=== PATIENT | female | born 1975 | race Caucasian/White ===

== ENCOUNTER 2016-05-18 09:46 | Emergency (ER) | payer MEDICAID | END 2016-05-18 10:31 | disposition home or self-care (01) | DX: M79.644 Pain in right finger(s) (principal); M32.9 Systemic lupus erythematosus, unspecified; M79.7 Fibromyalgia; F17.200 Nicotine dependence, unspecified, uncomplicated ==

== ENCOUNTER 2016-07-10 00:16 | Emergency (ER) | payer MEDICAID ==
[2016-07-10] MEDS ORDERED: IPRATROPIUM/ALBUTEROL 3 ML NEB INH ONE (00:23)
[2016-07-10] MEDS ORDERED: ALBUTEROL NEB 2.5 MG/3 ML INH ONE (00:26)
[2016-07-10] MEDS ORDERED: ALBUTEROL NEB 2.5 MG/3 ML INH STA (00:36)
[2016-07-10] MEDS ORDERED: predniSONE 20 MG TABLET PO STA (00:36)
[2016-07-10] MEDS ORDERED: predniSONE 20 MG TABLET ONE (00:41)
[2016-07-10] MEDS ORDERED: ALBUTEROL 8 GM INHALER INH ONE (01:14)
[2016-07-10] MEDS ORDERED: ALBUTEROL 8 GM INHALER INH STA (01:18)
== END 2016-07-10 01:30 | disposition home or self-care (01) ==
DX: J45.909 Unspecified asthma, uncomplicated (principal); Z86.718 Personal history of other venous thrombosis and embolism; M32.9 Systemic lupus erythematosus, unspecified; M79.7 Fibromyalgia; F17.200 Nicotine dependence, unspecified, uncomplicated
CPT/HCPCS: 94640; 99283; A9270; J7512; J7613; J7620

== ENCOUNTER 2016-08-04 22:54 | Emergency (ER) | payer MEDICAID ==
[2016-08-04 23:06] VITALS: BP 125/87
--- NOTE | 2016-08-04 23:42 | ED Physician Documentation ---
PD HPI URI - Stated complaint Stated Complaint: COUGH/CONGESTION - Chief complaint Chief Complaint: Heent - History obtained from History obtained from: Patient, Family - History of Present Illness Timing - onset: How many weeks ago (3) Timing duration: Weeks (3) Timing details: Gradual onset, Still present, Waxing and waning Associated symptoms: Ear pain (for 3 days on the left), Nasal congestion, Rhinorrhea, Sinus pain, Sore throat, Dry cough Contributing factors: Sick contact (both daughters are sick with similar) Improves by: Rest, Medication Worsened by: Activity Similar symptoms before: Diagnosis (URI asthma) Recently seen: Emergency Dept (Seen in the Ed with viral URI and was placed on a course of prednisone for 5 days with some improvment.) - Additional information Additional information: 40 y/o female with cough and congestion has a history of asthma and has recently had an exacerbation. She has left ear pain and worsening of her cough now and she has had to use her inhaler about 3 times per day. Review of Systems Constitutional: reports: Fever, Fatigue Eyes: denies: Decreased vision Ears: reports: Ear pain Nose: reports: Rhinorrhea / runny nose, Congestion Throat: reports: Sore throat Cardiac: denies: Chest pain / pressure, Palpitations Respiratory: reports: Dyspnea, Cough, Wheezing GI: denies: Nausea, Vomiting : denies: Dysuria Musculoskeletal: denies: Neck pain, Back pain PD PAST MEDICAL HISTORY - Past Medical History Cardiovascular: Deep vein thrombosis Respiratory: Asthma Endocrine/Autoimmune: Systemic lupus erythematosus Psych: Depression Musculoskeletal: Fibromyalgia Derm: None - Past Surgical History Past Surgical History: Yes - Present Medications Home Medications: Ambulatory Orders Medication Instructions Recorded Confirmed Albuterol Sulfate [Proair Hfa 1 - 2 puffs INH Q4H PRN #1 inhaler 07/10/16 Inhaler] Azithromycin [Zithromax] 250 mg PO DAILY #4 tablet 08/04/16 - Allergies Allergies/Adverse Reactions: Allergies Allergy/AdvReac Type Severity Reaction Status Date / Time cherries Allergy Severe Edema Uncoded 08/04/16 23:06 nuts Allergy Severe Edema Uncoded 08/04/16 23:06 - Social History Does the pt smoke?: Yes Smoking Status: Current every day smoker Does the pt drink ETOH?: No Does the pt have substance abuse?: No - Immunizations Immunizations are current?: Yes - POLST Patient has POLST: No PD ED PE NORMAL - Vitals Vital signs reviewed: Yes (tachy and hypertensive ) - General General: No acute distress, Well developed/nourished - HEENT HEENT: Atraumatic, PERRL, EOMI, Other (The right TM is clear the left is with dense erythema and distortion of the landmarks. There is left maxillary sinus tenderness as well. ) - Neck Neck: Supple, no meningeal sign, No bony TTP - Cardiac Cardiac: No murmur, Other (tachy to 100) - Respiratory Respiratory: No respiratory distress, Other (fair air movement without focal rhonchi and with scattered wheezes) - Extremities Extremities: No deformity, No edema - Neuro Neuro: No motor deficit, No sensory deficit - Psych Psych: Normal mood, Normal affect Results - Vitals Vitals: Vital Signs - 24 hr 08/04/16 23:02 Temperature 36.0 C L Heart Rate 107 H Respiratory 16 Rate Blood Pressure 125/87 H O2 Saturation 95 Oxygen O2 Source Room air PD MEDICAL DECISION MAKING - ED course Complexity details: reviewed old records, re-evaluated patient, considered differential, d/w patient, d/w family ED course: 40 y/o female sick for the past 6 weeks with asthma has now developed ear pain and a cough that has not gone away. She is given a dose of decadron here in the Ed and we will put her on zithromax as this has worked for this previously. I did discuss with the patient that the decadron will help for about 2 days and I am reluctant to put her on an extended course of prednisone now as this may be adequate. Departure - Departure Disposition: 01 Home, Self Care Clinical Impression: Otitis media Qualifiers: Otitis media type: suppurative Laterality: left Chronicity: acute Recurrence: not specified as recurrent Spontaneous tympanic membrane rupture: without spontaneous rupture Qualified Code(s): H66.002 - Acute suppurative otitis media without spontaneous rupture of ear drum, left ear Condition: Stable Instructions: ED Otitis Media Acute Adult Follow-Up: Naomie Galarza ARNP [Credentialed Staff Provider] - Prescriptions: Azithromycin [Zithromax] 250 mg PO DAILY #4 tablet
[2016-08-04] MEDS ORDERED: AZITHROMYCIN 250 MG TABLET PO STA (23:49)
[2016-08-04] MEDS ORDERED: DEXAMETHASONE 10 MG/ML VIAL PO STA (23:49)
[2016-08-05] MEDS ORDERED: DEXAMETHASONE 10 MG/ML VIAL ONE (00:04)
[2016-08-05] MEDS ORDERED: AZITHROMYCIN 250 MG TABLET PO ONE (00:04)
[2016-08-05] MEDS ORDERED: CHERRY SYRUP 10 ML UDC PO ONE (00:04)
== END 2016-08-05 00:13 | disposition home or self-care (01) ==
LOC: ED 22:54
DX: H66.002 Acute suppurative otitis media without spontaneous rupture of ear drum, left ear (principal); J45.909 Unspecified asthma, uncomplicated; M32.9 Systemic lupus erythematosus, unspecified; M79.7 Fibromyalgia; Z86.718 Personal history of other venous thrombosis and embolism; F17.200 Nicotine dependence, unspecified, uncomplicated
CPT/HCPCS: 99283; 99284; A9270

== ENCOUNTER 2017-01-02 17:25 | Emergency (ER) | payer MEDICAID ==
[2017-01-02] MEDS ORDERED: MORPHINE 10 MG/ML VIAL IVP STA (17:39)
[2017-01-02] MEDS ORDERED: ALBUTEROL NEB 2.5 MG/3 ML INH STA (17:39)
[2017-01-02] MEDS ORDERED: SODIUM CHLORIDE 0.9% 1,000 ML IV ONE (17:39)
--- NOTE | 2017-01-02 17:43 | ED Physician Documentation ---
PD HPI CHEST PAIN - Stated complaint Stated Complaint: SOA - Chief complaint Chief Complaint: Resp - History obtained from History obtained from: Patient, Family - History of Present Illness Timing - onset: Other (41-year-old without significant past medical history presents with 1-1/2 weeks of sometimes productive cough and central nonradiating chest tightness that is constant and worse today, worse with coughing and deep breathing. She is short of breath and sweaty with subjective fevers and chills. She has a history of childhood asthma, but she outgrew it. No other heart or lung abnormalities. She does have chronic pedal edema which is unchanged from prior, no leg pain. No recent travel or sick contacts. No possibility of per her.) Review of Systems Constitutional: reports: Fever, Chills, Fatigue Ears: denies: Ear pain Nose: denies: Rhinorrhea / runny nose, Congestion Cardiac: reports: Chest pain / pressure, Pedal edema. denies: Palpitations, Calf pain Respiratory: reports: Dyspnea, Cough. denies: Hemoptysis GI: denies: Abdominal Pain PD PAST MEDICAL HISTORY - Past Medical History Cardiovascular: Deep vein thrombosis Respiratory: Asthma Endocrine/Autoimmune: Systemic lupus erythematosus Psych: Depression Musculoskeletal: Fibromyalgia Derm: None - Past Surgical History Past Surgical History: Yes - Present Medications Home Medications: Ambulatory Orders Medication Instructions Recorded Confirmed Albuterol Sulfate [Proair Hfa 1 - 2 puffs INH Q4H PRN #1 inhaler 07/10/16 Inhaler] Azithromycin [Zithromax] 250 mg PO DAILY #4 tablet 08/04/16 Azithromycin [Zithromax] 250 mg PO DAILY #4 tablet 01/02/17 HYDROcod/ACETAM 5/325 [[place] 5/325] 1 - 2 ea PO Q6H PRN #15 tablet 01/02/17 guaiFENesin/CODEINE [Robitussin AC] 5 - 10 ml PO Q6H PRN #120 ml 01/02/17 - Allergies Allergies/Adverse Reactions: Allergies Allergy/AdvReac Type Severity Reaction Status Date / Time cherries Allergy Severe Edema Uncoded 08/04/16 23:06 nuts Allergy Severe Edema Uncoded 08/04/16 23:06 - Social History Does the pt smoke?: Yes Smoking Status: Current every day smoker Does the pt drink ETOH?: No Does the pt have substance abuse?: No - Immunizations Immunizations are current?: Yes - POLST Patient has POLST: No PD ED PE NORMAL - Vitals Vital signs reviewed: Yes - General General: Alert and oriented X 3, Other (She is a very frequent bronchitic cough , she is tachycardic and speaking in short sentences.) - HEENT HEENT: PERRL, EOMI - Neck Neck: Supple, no meningeal sign, No bony TTP - Cardiac Cardiac: Other (Tachycardic, regular, no murmur) - Respiratory Respiratory: Other (Frequent coughing, wheezing throughout with rhonchi especially in the right upper lobe) - Abdomen Abdomen: Soft, Non tender - Back Back: No CVA TTP, No spinal TTP - Derm Derm: Normal color, Warm and dry - Extremities Extremities: Other (Trace symmetric pitting pedal edema without calf tenderness) - Neuro Neuro: Alert and oriented X 3, Normal speech - Psych Psych: Normal mood, Normal affect Results - Vitals Vitals: Vital Signs - 24 hr 01/02/17 01/02/17 01/02/17 17:29 17:50 18:19 Temperature 36.1 C L Heart Rate 124 H 140 H 114 H Respiratory 16 22 24 Rate Blood Pressure 149/98 H 124/75 O2 Saturation 93 92 Oxygen O2 Source Room air - EKG (time done) 1734 Rate: Rate (enter#) (122) Rhythm: Sinus tachycardia [place]: Normal QRS: Normal Ischemia: Non specific changes (Hard to make of the details because of artifacts due to coughing, but no gross ST changes.) Computer interpretation: Agree with computer - Labs Labs: Laboratory Tests 01/02/17 01/02/17 01/02/17 18:05 18:05 18:05 WBC 13.1 H RBC 4.75 Hgb 14.6 Hct 42.9 MCV 90.2 MCH 30.8 MCHC 34.2 RDW 13.7 Plt Count 382 MPV 7.6 L Neut # 7.2 H Lymph # 3.9 H [place] # 0.7 Eos # 1.0 H Baso # 0.2 H Absolute Nucleated RBC 0.01 Nucleated RBC % 0.0 Sodium 138 Potassium 3.7 Chloride 102 Carbon Dioxide 21 Anion Gap 15.0 H BUN 8 Creatinine 0.7 Estimated GFR (MDRD) 93 Glucose 106 H Calcium 9.3 Total Bilirubin 0.6 AST 39 ALT 59 Alkaline Phosphatase 66 Troponin I < 0.04 Total Protein 7.9 Albumin 4.5 Globulin 3.4 Albumin/Globulin Ratio 1.3 Lipase 29 Serum HCG, Qual 01/02/17 18:05 WBC RBC Hgb Hct MCV MCH MCHC RDW Plt Count MPV Neut # Lymph # [place] # Eos # Baso # Absolute Nucleated RBC Nucleated RBC % Sodium Potassium Chloride Carbon Dioxide Anion Gap BUN Creatinine Estimated GFR (MDRD) Glucose Calcium Total Bilirubin AST ALT Alkaline Phosphatase Troponin I Total Protein Albumin Globulin Albumin/Globulin Ratio Lipase Serum HCG, Qual NEGATIVE - Rads (name of study) 2v chest Radiology: EMP read contemporaneously (NAD) PD MEDICAL DECISION MAKING - ED course ED course: 41-year-old woman presents quite ill-appearing with significant cough and chest pain related to same, there is no evidence of cardiac ischemia. Her chest x- ray surprisingly clear. After the administration of IV fluids, albuterol, and 5 mg of morphine she was feeling much more comfortable and looking much better. Given the leukocytosis I will treat with antibiotics despite the negative chest x-ray. PE was considered, but given the frequent cough and wheezing this is inconsistent with the history and physical. Departure - Departure Disposition: 01 Home, Self Care Clinical Impression: Bronchitis Chest pain Qualifiers: Chest pain type: unspecified Qualified Code(s): R07.9 - Chest pain, unspecified Condition: Good Record reviewed to determine appropriate education?: Yes Instructions: ED Bronchitis Asthmatic Prescriptions: Azithromycin [Zithromax] 250 mg PO DAILY #4 tablet guaiFENesin/CODEINE [Robitussin AC] 5 - 10 ml PO Q6H PRN #120 ml PRN Reason: Cough HYDROcod/ACETAM 5/325 [[place] 5/325] 1 - 2 ea PO Q6H PRN #15 tablet PRN Reason: Pain Comments: Call your doctor to arrange a follow-up appointment, make the next available appointment. In the interim, return anytime if worse or if new symptoms develop.
[2017-01-02] MEDS ORDERED: ALBUTEROL NEB 2.5 MG/3 ML INH ONE (17:49)
[2017-01-02] MEDS ORDERED: MORPHINE 10 MG/ML VIAL ONE (18:06)
[2017-01-02 18:12] LABS: BASOPHILS # (AUTO) 0.2 10^3/uL (0.0-0.1); BASOPHILS % (AUTO) 1.5 %; EOSINOPHILS % (AUTO) 7.9 %; HCT - HEMATOCRIT 42.9 % (37.0-47.0); HGB - HEMOGLOBIN 14.6 g/dL (12.0-16.0); LYMPHOCYTES # (AUTO) 3.9 10^3/uL (1.5-3.5); LYMPHOCYTES % (AUTO) 29.9 %; MEAN CORPUSCULAR HEMOGLOBIN 30.8 pg (27.0-31.0); MEAN CORPUSCULAR HGB CONC 34.2 g/dL (32.0-36.0); MEAN CORPUSCULAR VOLUME 90.2 fL (81.0-99.0); MEAN PLATELET VOLUME 7.6 fL (7.9-10.8); MONOCYTES # (AUTO) 0.7 10^3/uL (0.0-1.0); MONOCYTES % (AUTO) 5.3 %; NEUTROPHILS # (AUTO) 7.2 10^3/uL (1.5-6.6); NEUTROPHILS % (AUTO) 55.4 %; RED BLOOD COUNT 4.75 10^6/uL (4.20-5.40); RED CELL DISTRIBUTION WIDTH 13.7 % (12.0-15.0); UNCORRECTED WHITE BLOOD COUNT 13.1 x10^3/uL; WHITE BLOOD COUNT 13.1 x10^3/uL (4.8-10.8)
[2017-01-02 18:20] VITALS: BP 124/75
[2017-01-02 18:26] LABS: ALBUMIN/GLOBULIN RATIO 1.3 (1.0-2.2); BILIRUBIN,TOTAL 0.6 mg/dL (0.2-1.0); CALCIUM 9.3 mg/dL (8.5-10.3); CREATININE 0.7 mg/dL (0.4-1.0); POTASSIUM 3.7 mmol/L (3.5-5.0); TOTAL PROTEIN 7.9 g/dL (6.7-8.2)
--- NOTE | 2017-01-02 18:39 | XRAY Preliminary Report ---
Exam: XR CHEST 2 VIEW PA/LAT IMPRESSION: Normal 2-view chest radiography. [facility] SITE ID: [id number]
--- NOTE | 2017-01-02 18:42 | XRAY Report ---
EXAM: CHEST RADIOGRAPHY EXAM DATE: 01/02/2017 06:26 PM. CLINICAL HISTORY: Cough, chest pain. COMPARISON: 02/14/2014. TECHNIQUE: 2 views. FINDINGS: Lungs/Pleura: No focal opacities evident. No pleural effusion. No pneumothorax. Normal volumes. Mediastinum: Heart and mediastinal contours are unremarkable. Other: None. IMPRESSION: Normal 2-view chest radiography. [facility] Referring Provider Line: [phone] SITE ID: [id number]
[2017-01-02] MEDS ORDERED: predniSONE 20 MG TABLET PO STA (19:06)
[2017-01-02] MEDS ORDERED: AZITHROMYCIN 250 MG TABLET PO STA (19:06)
[2017-01-02] MEDS ORDERED: AZITHROMYCIN 250 MG TABLET PO ONE (19:18)
[2017-01-02] MEDS ORDERED: predniSONE 20 MG TABLET ONE (19:19)
== END 2017-01-02 19:20 | disposition home or self-care (01) ==
LOC: ED 17:25
DX: J40 Bronchitis, not specified as acute or chronic (principal); R07.9 Chest pain, unspecified; R00.0 Tachycardia, unspecified; D72.829 Elevated white blood cell count, unspecified; M32.9 Systemic lupus erythematosus, unspecified; Z86.718 Personal history of other venous thrombosis and embolism
CPT/HCPCS: 36415; 71020; 80053; 83690; 84484; 84703; 85025; 93005; 94640; 94664; 96361; 96374; 99283; 99284; A9270; J7512; J7613

== ENCOUNTER 2017-01-08 13:34 | Outpatient (CLI) | payer MEDICAID ==
--- NOTE | 2017-01-08 16:20 | Mammography Report ---
DIGITAL DIAGNOSTIC BILATERAL MAMMOGRAM: 01/08/2017 CLINICAL INDICATION: Left nipple discharge, palpable abnormality right breast on clinical exam. COMPARISON: 06/29/2009, 07/03/2009. TECHNIQUE: Bilateral CC, MLO, true lateral views, left spot magnification views. A marker could not b e placed in the right breast, as the patient was unable to identify a palpable abnormality at the rm e of the examination. FINDINGS: The breasts demonstrate fatty replacement bilaterally. A marker from previous ultrasound-g uided core needle biopsy of the right breast is noted in the right lower inner central breast. The pr eviously biopsied fibroadenoma is no longer present, likely surgically resected. No mammographic abno rmality is appreciated in the 9 o'clock position of the right breast, at the site of described palpab le abnormality. No mammographic abnormality is seen in the retroareolar left breast. No suspicious ma sses, clustered microcalcifications, or regions of architectural distortion are identified. IMPRESSION: BENIGN FINDINGS. RECOMMENDATION: ROUTINE ANNUAL SCREENING UNLESS OTHERWISE CLINICALLY INDICATED. BIRADS CATEGORY 2-BENIGN FINDINGS. STANDARD QUALIFYING STATEMENTS 1. This examination was reviewed with the aid of Computer-Aided Detection (CAD). 2. A negative or benign imaging report should not delay biopsy if clinically suspicious findings are present. Consider surgical consultation if warranted. More than 5% of cancers are not identified by i maging. 3. Dense breasts may obscure an underlying neoplasm. JOB #: [id number] EXT JOB #:[id number]
== END 2017-01-08 13:35 | disposition home or self-care (01) ==
LOC: DI 13:34
PROVIDERS: ATTEND Nurse Practitioner Gerontology
DX: N63.10 Unspecified lump in the right breast, unspecified quadrant (principal)
CPT/HCPCS: 77066

== ENCOUNTER 2017-05-29 20:56 | Emergency (ER) | payer MEDICAID ==
[2017-05-29] MEDS ORDERED: METOCLOPRAMIDE 10 MG/2 ML VIAL IVP STA (22:06)
[2017-05-29] MEDS ORDERED: KETOROLAC 30 MG/ML VIAL IVP STA (22:06)
[2017-05-29] MEDS ORDERED: SODIUM CHLORIDE 0.9% 1,000 ML IV ONE (22:06)
[2017-05-29] MEDS ORDERED: diphenhydrAMINE INJ 50 MG/ML VIAL IVP STA (22:06)
[2017-05-29] MEDS ORDERED: DEXAMETHASONE 10 MG/ML VIAL IVP STA (22:06)
--- NOTE | 2017-05-29 22:08 | ED Physician Documentation ---
PD HPI HEADACHE - Stated complaint Stated Complaint: KENT/COUGH - Chief complaint Chief Complaint: Resp - History obtained from History obtained from: Patient - History of Present Illness Timing - onset: Other (41-year-old woman with history of asthma and migraines. She has had a frontal headache for 3 days, gradual in onset associated with photophobia but no nausea. She has been taking naproxen and ibuprofen and Tylenol without relief. She also has sinus drainage and nonproductive cough but without fevers. There is no neck stiffness.) Review of Systems Constitutional: denies: Fever, Chills Ears: reports: Ear pain. denies: Loss of hearing Nose: reports: Rhinorrhea / runny nose, Congestion. denies: Sinus pressure / pain Throat: denies: Sore throat Respiratory: reports: Cough. denies: Dyspnea GI: denies: Abdominal Pain, Nausea, Vomiting PD PAST MEDICAL HISTORY - Past Medical History Cardiovascular: Deep vein thrombosis Respiratory: Asthma Endocrine/Autoimmune: Systemic lupus erythematosus Psych: Depression Musculoskeletal: Fibromyalgia Derm: None - Past Surgical History Past Surgical History: Yes - Present Medications Home Medications: Ambulatory Orders Medication Instructions Recorded Confirmed Albuterol Sulfate [Proair Hfa 1 - 2 puffs INH Q4H PRN #1 inhaler 07/10/16 Inhaler] Azithromycin [Zithromax] 250 mg PO DAILY #4 tablet 08/04/16 Azithromycin [Zithromax] 250 mg PO DAILY #4 tablet 01/02/17 HYDROcod/ACETAM 5/325 [[place] 5/325] 1 - 2 ea PO Q6H PRN #15 tablet 01/02/17 guaiFENesin/CODEINE [Robitussin AC] 5 - 10 ml PO Q6H PRN #120 ml 01/02/17 - Allergies Allergies/Adverse Reactions: Allergies Allergy/AdvReac Type Severity Reaction Status Date / Time cherries Allergy Severe Edema Uncoded 08/04/16 23:06 nuts Allergy Severe Edema Uncoded 08/04/16 23:06 - Social History Does the pt smoke?: Yes Smoking Status: Current every day smoker Does the pt drink ETOH?: No Does the pt have substance abuse?: No - Immunizations Immunizations are current?: Yes - POLST Patient has POLST: No PD ED PE NORMAL - Vitals Vital signs reviewed: Yes - General General: Alert and oriented X 3, No acute distress - HEENT HEENT: PERRL, EOMI, Pharynx benign, Other (Photophobic) - Neck Neck: Supple, no meningeal sign, No bony TTP - Cardiac Cardiac: RRR, No murmur - Respiratory Respiratory: No respiratory distress, Clear bilaterally - Abdomen Abdomen: Non tender - Neuro Neuro: Alert and oriented X 3, 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 Does not really seem like it is in a pattern consistent with vascular or meningitis type issue. She was administered IV fluids, Reglan, Toradol, Decadron, Benadryl with good but incomplete relief of her pain. Requesting discharge. Departure - Departure Disposition: Home, Self Care Clinical Impression: Upper respiratory tract infection Qualifiers: URI type: unspecified viral URI Qualified Code(s): J06.9 - Acute upper respiratory infection, unspecified Migraine Qualifiers: Migraine type: without aura Status migrainosus presence: with status migrainosus Intractability: not intractable Qualified Code(s): G43.001 - Migraine without aura, not intractable, with status migrainosus Condition: Good Record reviewed to determine appropriate education?: Yes Instructions: ED Viral Syndrome, ED Cephalgia Unspecified Comments: Call your doctor to arrange a follow-up appointment, make the next available appointment. In the interim, return anytime if worse or if new symptoms develop. Your blood pressure was elevated today on check into the emergency department. This does not mean that you have hypertension, it is a common phenomenon to come to the emergency department and have elevated blood pressure. I recommend that you see your primary care physician within the week to have it rechecked when you are feeling better.
[2017-05-29] MEDS ORDERED: HYDROcod/ACET 5/325 Prepack 6 PO STA (22:53)
[2017-05-29 23:02] VITALS: BP 114/61
== END 2017-05-29 23:05 | disposition home or self-care (01) ==
LOC: ED 20:56
DX: J06.9 Acute upper respiratory infection, unspecified (principal); R03.0 Elevated blood-pressure reading, without diagnosis of hypertension; M32.9 Systemic lupus erythematosus, unspecified; F17.200 Nicotine dependence, unspecified, uncomplicated; Z86.718 Personal history of other venous thrombosis and embolism
CPT/HCPCS: 96374; 96375; 99283; J1200; J2765

== ENCOUNTER 2017-08-27 00:07 | Emergency (ER) | payer MEDICAID ==
[2017-08-27] MEDS ORDERED: guaiFENesin/DEXTROMETHORPHAN 10 ML UDC PO STA (00:29)
[2017-08-27] MEDS ORDERED: IPRATROPIUM/ALBUTEROL 3 ML NEB INH STA (00:29)
[2017-08-27] MEDS ORDERED: BENZONATATE 100 MG CAPSULE PO STA (00:29)
[2017-08-27] MEDS ORDERED: predniSONE 20 MG TABLET PO STA (00:29)
--- NOTE | 2017-08-27 01:19 | ED Physician Documentation ---
PD HPI DYSPNEA - Stated complaint Stated Complaint: SHORTNESS OF BREATH - Chief complaint Chief Complaint: Resp - History obtained from History obtained from: Patient - History of Present Illness Timing - onset: Yesterday Timing - onset during: Rest, Light activity Timing - details: Gradual onset, Still present Inciting event(s): URI Improved by: Inhaler/neb Associated symptoms: Wheezing Similar symptoms before: Work up / diagnostics, Treatment Recently seen: Not recently seen - Additional information Additional information: patient is a 42 year old female who is presenting to the emergency department for wheezing and shortness of breath. patient states that it has been going on for the last few days, and she has tried using her rescue inhaler but her symptoms are persisting. Review of Systems Constitutional: denies: Fever, Chills Ears: reports: Ear pain Nose: reports: Rhinorrhea / runny nose, Congestion, Sinus pressure / pain Throat: reports: Sore throat Cardiac: denies: Chest pain / pressure Respiratory: reports: Cough, Wheezing GI: denies: Nausea, Vomiting Skin: denies: Rash Immunocompromised: denies: Immunocompromised PD PAST MEDICAL HISTORY - Past Medical History Past Medical History: Yes Cardiovascular: Deep vein thrombosis Respiratory: Asthma Neuro: Migraines Endocrine/Autoimmune: Systemic lupus erythematosus Psych: Depression Musculoskeletal: Fibromyalgia Derm: None - Past Surgical History Past Surgical History: Yes - Present Medications Home Medications: Ambulatory Orders Medication Instructions Recorded Confirmed Albuterol Sulfate [Proair Hfa 1 - 2 puffs INH Q4H PRN #1 inhaler 07/10/16 Inhaler] Azithromycin [Zithromax] 250 mg PO DAILY #4 tablet 08/04/16 Azithromycin [Zithromax] 250 mg PO DAILY #4 tablet 01/02/17 HYDROcod/ACETAM 5/325 [[place] 5/325] 1 - 2 ea PO Q6H PRN #15 tablet 01/02/17 guaiFENesin/CODEINE [Robitussin AC] 5 - 10 ml PO Q6H PRN #120 ml 01/02/17 Albuterol Sulfate [Proventil Hfa 1 - 2 puffs INH Q4H PRN #1 inhaler 08/27/17 Inhaler] Benzonatate [Tessalon] 100 mg PO TID #14 capsule 08/27/17 predniSONE [Prednisone] 40 mg PO DAILY 5 Days tablet 08/27/17 - Allergies Allergies/Adverse Reactions: Allergies Allergy/AdvReac Type Severity Reaction Status Date / Time cherries Allergy Severe Edema Uncoded 08/04/16 23:06 nuts Allergy Severe Edema Uncoded 08/04/16 23:06 - Social History Does the pt smoke?: Yes Smoking Status: Current every day smoker Does the pt drink ETOH?: No Does the pt have substance abuse?: No - Immunizations Immunizations are current?: Yes - POLST Patient has POLST: No PD ED PE NORMAL - Vitals Vital signs reviewed: Yes - General General: Alert and oriented X 3 - HEENT HEENT: Atraumatic - Cardiac Cardiac: RRR, No murmur - Abdomen Abdomen: Non distended - Derm Derm: Normal color, Warm and dry - Extremities Extremities: No deformity - Neuro Neuro: Alert and oriented X 3 Eye Opening: Spontaneous PD ED PE EXPANDED - HEENT HEENT: R TM dull, L TM dull, Nasal congestion, Pharyngeal erythema. No: Swollen tonsils - Respiratory Respiratory: Wheezing, Right upper lobe, Right middle lobe, Right lower lobe, Left upper lobe, Left lower lobe Results - Vitals Vitals: Vital Signs - 24 hr 08/27/17 08/27/17 00:10 00:45 Temperature 36.7 C Heart Rate 96 122 H Respiratory 18 18 Rate Blood Pressure 148/97 H O2 Saturation 98 Oxygen O2 Source Room air PD MEDICAL DECISION MAKING - ED course Complexity details: reviewed old records, reviewed results, re-evaluated patient , considered differential, d/w patient ED course: patient was seen and examined at bedside. Patient was treated with prednisone and two duoneb treatments. Patient responded well to the therapy. Patient's wheezing improved significantly. Patient was treated with tessalon and robitussin. Patient was asking to go home and was stable for discharge with outpatient follow up. Departure - Departure Disposition: 01 Home, Self Care Clinical Impression: Bronchitis Condition: Good Instructions: ED Bronchitis Asthmatic Follow-Up: Claudio Matos PA-C [Primary Care Provider] - Tomorrow Prescriptions: Albuterol Sulfate [Proventil Hfa Inhaler] 1 - 2 puffs INH Q4H PRN #1 inhaler PRN Reason: Shortness Of Air/Wheezing Benzonatate [Tessalon] 100 mg PO TID #14 capsule predniSONE [Prednisone] 40 mg PO DAILY 5 Days tablet Comments: Your symptoms today are being caused by bronchitis. The symptoms can last from weeks to months. The best thing you can do is to quit smoking. In the meantime you can use the steroids and your inhaler up to every two hours as needed. You can take over the counter cough and cold medications. You should follow up with your doctor if your symptoms persist. You may return to the emergency department at any time for new, worsening or uncontrollable symptoms.
[2017-08-27 01:46] VITALS: BP 138/76
== END 2017-08-27 01:38 | disposition home or self-care (01) ==
LOC: ED 00:07
DX: J45.909 Unspecified asthma, uncomplicated (principal); R09.81 Nasal congestion; F17.200 Nicotine dependence, unspecified, uncomplicated; M32.9 Systemic lupus erythematosus, unspecified
CPT/HCPCS: 94640; 99283; A9270; J7512

== ENCOUNTER 2017-08-31 23:16 | Emergency (ER) | payer MEDICAID ==
--- NOTE | 2017-08-31 23:27 | ED Physician Documentation ---
PD HPI DYSPNEA - Stated complaint Stated Complaint: SOA - Chief complaint Chief Complaint: Resp - History obtained from History obtained from: Patient - History of Present Illness Timing - onset: How many weeks ago (1) Timing - duration: Weeks (1) Timing - details: Gradual onset, Waxing and waning Pain level max: 0 Pain level now: 0 Improved by: Rest Worsened by: Exertion Associated symptoms: Fever (101.4 (yesterday)), Cough, Wheezing. 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 T+R 4 days ago from this ED after improvement with neb x 2 and prednisone, but gradually worsening since then Review of Systems Constitutional: reports: Fever Ears: reports: Ear pain (left ear pain) Throat: reports: Sore throat Cardiac: reports: Reviewed and negative Respiratory: reports: Dyspnea, Cough, Wheezing PD PAST MEDICAL HISTORY - Past Medical History Cardiovascular: Deep vein thrombosis Respiratory: Asthma Neuro: Migraines Endocrine/Autoimmune: Systemic lupus erythematosus Psych: Depression Musculoskeletal: Fibromyalgia Derm: None - Past Surgical History Past Surgical History: Yes - Present Medications Home Medications: Ambulatory Orders Medication Instructions Recorded Confirmed Albuterol Sulfate [Proair Hfa 1 - 2 puffs INH Q4H PRN #1 inhaler 07/10/16 Inhaler] Azithromycin [Zithromax] 250 mg PO DAILY #4 tablet 08/04/16 Azithromycin [Zithromax] 250 mg PO DAILY #4 tablet 01/02/17 HYDROcod/ACETAM 5/325 [[place] 5/325] 1 - 2 ea PO Q6H PRN #15 tablet 01/02/17 guaiFENesin/CODEINE [Robitussin AC] 5 - 10 ml PO Q6H PRN #120 ml 01/02/17 Albuterol Sulfate [Proventil Hfa 1 - 2 puffs INH Q4H PRN #1 inhaler 08/27/17 Inhaler] Benzonatate [Tessalon] 100 mg PO TID #14 capsule 08/27/17 predniSONE [Prednisone] 40 mg PO DAILY 5 Days tablet 08/27/17 - Allergies Allergies/Adverse Reactions: Allergies Allergy/AdvReac Type Severity Reaction Status Date / Time cherries Allergy Severe Edema Uncoded 08/04/16 23:06 nuts Allergy Severe Edema Uncoded 08/04/16 23:06 - Social History Does the pt smoke?: Yes Smoking Status: Current every day smoker Does the pt drink ETOH?: No Does the pt have substance abuse?: No - Immunizations Immunizations are current?: Yes - POLST Patient has POLST: No PD ED PE NORMAL - Vitals Vital signs reviewed: Yes - General General: Alert and oriented X 3, No acute distress, Well developed/nourished, Other (speaks in abbreviated sentences due to dyspnea) - HEENT HEENT: Ears normal, Moist mucous membranes, Other (mild posterior oropharyngeal erythema, no exudate) - Cardiac Cardiac: RRR, No murmur - Respiratory Respiratory: No respiratory distress, Other (bilateral expiratory wheezing, prolonged expiratory phase, decreased breath sounds bilaterally) Results - Vitals Vitals: Vital Signs - 24 hr 08/31/17 08/31/17 09/01/17 23:20 23:38 00:15 Heart Rate 90 100 93 Respiratory 24 22 18 Rate Blood Pressure 141/87 H 163/91 H O2 Saturation 97 95 09/01/17 09/01/17 09/01/17 01:18 01:21 01:27 Heart Rate 90 90 Respiratory 18 16 Rate Blood Pressure 143/92 H O2 Saturation 99 Oxygen O2 Source Room air - Labs Labs: Laboratory Tests 09/01/17 00:15 Group A Strep Rapid Negative - Rads (name of study) chest xray Radiology: Prelim report reviewed, See rad report PD MEDICAL DECISION MAKING - ED course Complexity details: reviewed old records, reviewed results, re-evaluated patient , considered differential, d/w patient ED course: patient reported significant improvement after duoneb. rapid strep negative and cxr does not demonstrate acute process. On reexam (auscultation of lungs), there is good air movement with expiratory wheezing bilaterally (less wheezing than initial exam). Given second neb (albuterol), PO decadron, and discharged with prednisone taper - Sepsis Event Vital Signs: Vital Signs - 24 hr 08/31/17 08/31/17 09/01/17 23:20 23:38 00:15 Heart Rate 90 100 93 Respiratory 24 22 18 Rate Blood Pressure 141/87 H 163/91 H O2 Saturation 97 95 09/01/17 09/01/17 09/01/17 01:18 01:21 01:27 Heart Rate 90 90 Respiratory 18 16 Rate Blood Pressure 143/92 H O2 Saturation 99 Oxygen O2 Source Room air Departure - Departure Disposition: 01 Home, Self Care Clinical Impression: Asthma Qualifiers: Asthma severity: moderate Asthma persistence: unspecified Asthma complication type: with acute exacerbation Qualified Code(s): J45.901 - Unspecified asthma with (acute) exacerbation Condition: Good Instructions: ED Reactive Airway Disease Follow-Up: Claudio Matos PA-C [Primary Care Provider] - (2-3 days if symptoms persist) Discharge Date/Time: 09/01/17 01:27
[2017-08-31] MEDS ORDERED: IPRATROPIUM/ALBUTEROL 3 ML NEB INH STA (23:31)
[2017-08-31] MEDS ORDERED: DEXAMETHASONE 10 MG/ML VIAL PO STA (23:47)
[2017-09-01] MEDS ORDERED: CHERRY SYRUP 10 ML UDC PO ONE (00:09)
--- NOTE | 2017-09-01 00:28 | XRAY Preliminary Report ---
Exam: XR CHEST 2 VIEW X-RAY IMPRESSION: Normal 2-view chest radiography. [facility] SITE ID: [id number]
--- NOTE | 2017-09-01 00:28 | XRAY Report ---
EXAM: CHEST RADIOGRAPHY EXAM DATE: 09/01/2017 12:07 AM. CLINICAL HISTORY: Dyspnea, cough, fever. COMPARISON: 01/02/2017 chest x-ray. TECHNIQUE: 2 views. FINDINGS: Lungs/Pleura: No focal opacities evident. No pleural effusion. No pneumothorax. Normal volumes. Mediastinum: Heart and mediastinal contours are unremarkable. Other: None. IMPRESSION: Normal 2-view chest radiography. [facility] Referring Provider Line: [phone] SITE ID: [id number]
[2017-09-01] MEDS ORDERED: ALBUTEROL NEB 2.5 MG/3 ML INH STA (01:09)
[2017-09-01 01:21] VITALS: BP 143/92
== END 2017-09-01 01:27 | disposition home or self-care (01) ==
LOC: ED 23:16
DX: J45.901 Unspecified asthma with (acute) exacerbation (principal); M32.9 Systemic lupus erythematosus, unspecified; F17.200 Nicotine dependence, unspecified, uncomplicated; Z86.718 Personal history of other venous thrombosis and embolism
CPT/HCPCS: 71046; 87070; 87430; 94640; 94664; 99283

== ENCOUNTER 2017-09-15 22:43 | Emergency (ER) | payer MEDICAID ==
[2017-09-15 22:54] VITALS: BP 128/79
--- NOTE | 2017-09-15 22:58 | ED Physician Documentation ---
PD HPI FEMALE - Stated complaint Stated Complaint: FEMALE - Chief complaint Chief Complaint: Abd Pain - History obtained from History obtained from: Patient - History of Present Illness Timing - onset: Other (since 08/27/17) Timing - duration: Weeks Timing - details: Gradual onset Pain level max: 0 Associated symptoms: Vaginal bleeding. No: Fever Contributing factors: No: Recently seen: Emergency Dept (T+R twice this month (unrelated c/o)) - Additional information Additional information: c/o vaginal bleeding since 08/27/17 which became associated with clots since this morning. Review of Systems Constitutional: denies: Fever, Fatigue Respiratory: denies: Dyspnea GI: denies: Abdominal Pain : reports: Vaginal bleeding. denies: Now EGA Neurologic: denies: Generalized weakness PD PAST MEDICAL HISTORY - Past Medical History Past Medical History: Yes Cardiovascular: Deep vein thrombosis Respiratory: Asthma Neuro: Migraines Endocrine/Autoimmune: Systemic lupus erythematosus : None HEENT: None Psych: Depression Musculoskeletal: Fibromyalgia Derm: None - Past Surgical History Past Surgical History: Yes - Present Medications Home Medications: Ambulatory Orders Medication Instructions Recorded Confirmed Azithromycin [Zithromax] 250 mg PO DAILY #4 tablet 01/02/17 09/15/17 HYDROcod/ACETAM 5/325 [[place] 5/325] 1 - 2 ea PO Q6H PRN #15 tablet 01/02/17 guaiFENesin/CODEINE [Robitussin AC] 5 - 10 ml PO Q6H PRN #120 ml 01/02/17 Albuterol Sulfate [Proventil Hfa 1 - 2 puffs INH Q4H PRN #1 inhaler 08/27/17 Inhaler] Benzonatate [Tessalon] 100 mg PO TID #14 capsule 08/27/17 09/15/17 predniSONE [Prednisone] 40 mg PO DAILY 5 Days tablet 08/27/17 09/15/17 - Allergies Allergies/Adverse Reactions: Allergies Allergy/AdvReac Type Severity Reaction Status Date / Time cherries Allergy Severe Edema Uncoded 09/15/17 23:07 nuts Allergy Severe Edema Uncoded 09/15/17 23:07 - Social History Does the pt smoke?: Yes Smoking Status: Current every day smoker Does the pt drink ETOH?: No Does the pt have substance abuse?: No - Immunizations Immunizations are current?: Yes - POLST Patient has POLST: No PD ED PE NORMAL - Vitals Vital signs reviewed: Yes - General General: Alert and oriented X 3, No acute distress, Well developed/nourished - Cardiac Cardiac: RRR, No murmur - Respiratory Respiratory: No respiratory distress, Clear bilaterally - Abdomen Abdomen: Soft, Non tender - Back Back: No CVA TTP - Derm Derm: Normal color Results - Vitals Vitals: Vital Signs - 24 hr 09/15/17 22:51 Temperature 37.0 C Heart Rate 111 H Respiratory 18 Rate Blood Pressure 128/79 O2 Saturation 96 Oxygen O2 Source Room air - Labs Labs: Laboratory Tests 09/15/17 09/15/17 23:16 23:29 WBC 9.9 RBC 4.39 Hgb 13.7 Hct 41.0 MCV 93.2 MCH 31.3 H MCHC 33.5 RDW 13.9 Plt Count 330 MPV 7.3 L Neut # (Auto) 5.3 Lymph # (Auto) 3.6 H [place] # (Auto) 0.5 Eos # (Auto) 0.3 Baso # (Auto) 0.1 Absolute Nucleated RBC 0.00 Nucleated RBC % 0.0 Urine Color YELLOW Urine Clarity CLEAR Urine pH 5.5 Ur Specific [place] >=1.030 H Urine Protein NEGATIVE Urine Glucose (UA) NEGATIVE Urine Ketones NEGATIVE Urine Occult Blood LARGE H Urine Nitrite NEGATIVE Urine Bilirubin NEGATIVE Urine Urobilinogen 0.2 (NORMAL) Ur Leukocyte Esterase NEGATIVE Urine RBC 6-10 H Urine WBC 4-5 Ur Squamous Epith Cells MANY Squamous H Urine Bacteria Rare Ur Microscopic Review INDICATED Urine Culture Comments NOT INDICATED Urine HCG, Qual NEGATIVE PD MEDICAL DECISION MAKING - ED course Complexity details: reviewed results, re-evaluated patient, considered differential, d/w patient ED course: unremarkable CBC including normal h/h. I instructed patient to follow-up with certified nurses aide, call in the morning to arrange for next available appointment. Also instructed to return if worse - Sepsis Event Vital Signs: Vital Signs - 24 hr 09/15/17 22:51 Temperature 37.0 C Heart Rate 111 H Respiratory 18 Rate Blood Pressure 128/79 O2 Saturation 96 Oxygen O2 Source Room air Departure - Departure Disposition: 01 Home, Self Care Clinical Impression: Vaginal bleeding Condition: Good Instructions: ED Bleed Irregular Vaginal Follow-Up: Mell Mcclain DO [Provider Admit Priv/Credential] - Within 3 Days Discharge Date/Time: 09/16/17 00:51
[2017-09-15 23:33] LABS: BASOPHILS # (AUTO) 0.1 10^3/uL (0.0-0.1); BASOPHILS % (AUTO) 1.4 %; EOSINOPHILS # (AUTO) 0.3 10^3/uL (0.0-0.7); EOSINOPHILS % (AUTO) 2.9 %; HGB - HEMOGLOBIN 13.7 g/dL (12.0-16.0); LYMPHOCYTES # (AUTO) 3.6 10^3/uL (1.5-3.5); LYMPHOCYTES % (AUTO) 36.3 %; MEAN CORPUSCULAR HEMOGLOBIN 31.3 pg (27.0-31.0); MEAN CORPUSCULAR HGB CONC 33.5 g/dL (32.0-36.0); MEAN CORPUSCULAR VOLUME 93.2 fL (81.0-99.0); MEAN PLATELET VOLUME 7.3 fL (7.9-10.8); MONOCYTES # (AUTO) 0.5 10^3/uL (0.0-1.0); MONOCYTES % (AUTO) 5.3 %; NEUTROPHILS # (AUTO) 5.3 10^3/uL (1.5-6.6); NEUTROPHILS % (AUTO) 54.1 %; PLT - PLATELET COUNT 330 10^3/uL (130-450); RED BLOOD COUNT 4.39 10^6/uL (4.20-5.40); RED CELL DISTRIBUTION WIDTH 13.9 % (12.0-15.0); WHITE BLOOD COUNT 9.9 x10^3/uL (4.8-10.8)
[2017-09-15 23:41] LABS: BILIRUBIN,URINE NEGATIVE (NEGATIVE); GLUCOSE, URINE (UA) NEGATIVE (NEGATIVE); KETONES,URINE (UA) NEGATIVE (NEGATIVE); LEUKOCYTE ESTERASE, URINE NEGATIVE (NEGATIVE); NITRITE,URINE NEGATIVE (NEGATIVE); OCCULT BLOOD,URINE LARGE (NEGATIVE); PH,URINE 5.5 PH (5.0-7.5); PROTEIN,URINE NEGATIVE (NEGATIVE); UROBILINOGEN,URINE 0.2 (NORMAL) E.U./dL (NORMAL)
[2017-09-15 23:42] LABS: CLARITY,URINE CLEAR (CLEAR); HCG UR QUAL NEGATIVE
[2017-09-15 23:47] LABS: SQUAMOUS EPITHELIAL CELL,UR MANY Squamous (<= Few)
[2017-09-15 23:48] LABS: BACTERIA,URINE Rare /HPF (None Seen)
== END 2017-09-16 00:51 | disposition home or self-care (01) ==
LOC: ED 22:43
DX: N93.9 Abnormal uterine and vaginal bleeding, unspecified (principal); F17.200 Nicotine dependence, unspecified, uncomplicated
CPT/HCPCS: 36415; 81001; 81003; 81025; 85025; 87086; 99283

== ENCOUNTER 2017-09-29 | Emergency (ER) | payer MEDICAID ==
[2017-09-29 00:18] VITALS: BP 131/82
--- NOTE | 2017-09-29 01:23 | ED Physician Documentation ---
History of Present Illness - Stated complaint Stated Complaint: RT LEG BURNING - Chief complaint Chief Complaint: Ext Problem - History obtained from History obtained from: Patient - Additonal information Additional information: 42-year-old female presents the emergency department with complaints of right lower leg pain. The patient's symptoms have been ongoing for over 4 days. The patient first noticed a bruise on her right lateral mid lower extremity. The patient has a very small bruise and reports a burning sensation that radiates up her leg. The patient reports leg swelling. The patient denies any recent trauma, fevers, chills, triggering factors or relieving factors. No other associated symptoms Review of Systems Constitutional: denies: Fever, Chills Cardiac: denies: Chest pain / pressure Respiratory: denies: Dyspnea, Cough GI: denies: Abdominal Pain Musculoskeletal: reports: Extremity pain. denies: Joint pain, Extremity swelling, Joint swelling Neurologic: denies: Generalized weakness, Focal weakness Immunocompromised: denies: Chemotherapy PD PAST MEDICAL HISTORY - Past Medical History Cardiovascular: Deep vein thrombosis Respiratory: Asthma Neuro: Migraines Endocrine/Autoimmune: Systemic lupus erythematosus : None HEENT: None Psych: Depression Musculoskeletal: Fibromyalgia Derm: None - Past Surgical History Past Surgical History: Yes - Present Medications Home Medications: Ambulatory Orders Medication Instructions Recorded Confirmed Azithromycin [Zithromax] 250 mg PO DAILY #4 tablet 01/02/17 09/15/17 HYDROcod/ACETAM 5/325 [[place] 5/325] 1 - 2 ea PO Q6H PRN #15 tablet 01/02/17 guaiFENesin/CODEINE [Robitussin AC] 5 - 10 ml PO Q6H PRN #120 ml 01/02/17 Albuterol Sulfate [Proventil Hfa 1 - 2 puffs INH Q4H PRN #1 inhaler 08/27/17 Inhaler] Benzonatate [Tessalon] 100 mg PO TID #14 capsule 08/27/17 09/15/17 predniSONE [Prednisone] 40 mg PO DAILY 5 Days tablet 08/27/17 09/15/17 - Allergies Allergies/Adverse Reactions: Allergies Allergy/AdvReac Type Severity Reaction Status Date / Time cherries Allergy Severe Edema Uncoded 09/29/17 00:18 nuts Allergy Severe Edema Uncoded 07/09/18 00:18 - Social History Does the pt smoke?: Yes Smoking Status: Current every day smoker Does the pt drink ETOH?: No Does the pt have substance abuse?: No - Immunizations Immunizations are current?: Yes - POLST Patient has POLST: No PD ED PE NORMAL - General General: Alert and oriented X 3, No acute distress - HEENT HEENT: Atraumatic, PERRL, EOMI - Neck Neck: Supple, no meningeal sign - Cardiac Cardiac: RRR, Strong equal pulses - Respiratory Respiratory: No respiratory distress, Clear bilaterally - Extremities Extremities: No deformity - Neuro Neuro: Alert and oriented X 3, No motor deficit - Psych Psych: Normal mood PD ED PE EXPANDED - Extremities Extremities: Other (The patient has a very small area of skin change which appears to be a bruise and is tender to palpation. This does not appear to be cellulitis, and abscess or superficial thrombophlebitis. The patient has full active range of motion of the hip, knee and ankle. The patient reports swelling but currently I do not appreciate any actual swelling. The patient has brisk cap refill and a normal dorsalis pedis pulse bilaterally.) ELIZABETH LE visual: 1 - bruising, tenderness Results - Vitals Vitals: Vital Signs - 24 hr 09/29/17 00:13 Temperature 37.2 C Heart Rate 100 Respiratory 16 Rate Blood Pressure 131/82 H O2 Saturation 95 Oxygen O2 Source Room air PD MEDICAL DECISION MAKING - ED course Complexity details: other (I explained to the patient after the initial evaluation that lab work would be ordered and an ultrasound to rule out a deep vein thrombosis. After I left the room and ordered the studies the patient decided that she did not want to stay in the emergency department and requested to be discharged home. I went back into the room to discuss with the patient my plan to evaluate her leg pain. I explained to her that this could represent an undiagnosed condition which left untreated could result in disability or . The patient understands but still wants to be discharged home. The patient is competent and capable of making his decision. I did recommend returning to the emergency department at any point for reevaluation) - Sepsis Event Vital Signs: Vital Signs - 24 hr 09/29/17 00:13 Temperature 37.2 C Heart Rate 100 Respiratory 16 Rate Blood Pressure 131/82 H O2 Saturation 95 Oxygen O2 Source Room air Departure - Departure Disposition: 01 Home, Self Care Clinical Impression: Pain in extremity Qualifiers: Extremity pain location: lower extremity Laterality: unspecified laterality Qualified Code(s): M79.606 - Pain in leg, unspecified Condition: Good Instructions: ED Symptoms No Dx Follow-Up: Claudio Matos PA-C [Primary Care Provider] - Tomorrow Comments: You have refused to have an ultrasound and lab work performed in the emergency department to further evaluate your symptoms. You understand you can have an undiagnosed condition which left untreated could result in disability or . Please return to the emergency department immediately for any worsening or any concerns Discharge Date/Time: 09/29/17 01:29
== END 2017-09-29 01:29 | disposition home or self-care (01) ==
LOC: ED
DX: M79.661 Pain in right lower leg (principal); Z53.20 Procedure and treatment not carried out because of patient's decision for unspecified reasons; M32.9 Systemic lupus erythematosus, unspecified; M79.7 Fibromyalgia; Z86.718 Personal history of other venous thrombosis and embolism; F17.200 Nicotine dependence, unspecified, uncomplicated
CPT/HCPCS: 80048; 82550; 83735; 99282; 99283

== ENCOUNTER 2017-12-20 03:43 | Emergency (ER) | payer MEDICAID ==
[2017-12-20 03:54] VITALS: BP 122/94
[2017-12-20] MEDS ORDERED: IBUPROFEN 800 MG TABLET PO STA (04:03)
[2017-12-20] MEDS ORDERED: predniSONE 20 MG TABLET PO STA (04:03)
[2017-12-20] MEDS ORDERED: SULFAMETH/TRIMETH DS 800/160 MG TABLET PO STA (04:03)
[2017-12-20] MEDS ORDERED: cephALEXin 250 MG CAPSULE PO STA (04:03)
--- NOTE | 2017-12-20 04:05 | ED Physician Documentation ---
History of Present Illness - Stated complaint Stated Complaint: LT INNER THIGH BUMP - Chief complaint Chief Complaint: General - History obtained from History obtained from: Patient, Family - History of Present Illness Timing: Yesterday Pain level max: 10 Pain level now: 10 - Additonal information Additional information: Patient is a 42-year-old female who presents to the emergency department with a left thigh bite and redness for the past day. States it is a stinging pain in the leg. She states that the redness has continued to spread throughout the day. At that it is itchy. Does not know if something bit her or not. Nothing makes it better. It is worse with palpation Review of Systems Constitutional: denies: Fever, Chills GI: denies: Vomiting : denies: Now EGA Skin: denies: Rash Musculoskeletal: denies: Neck pain, Back pain Neurologic: denies: Headache PD PAST MEDICAL HISTORY - Past Medical History Cardiovascular: Deep vein thrombosis Respiratory: Asthma Neuro: Migraines Endocrine/Autoimmune: Systemic lupus erythematosus : None HEENT: None Psych: Depression Musculoskeletal: Fibromyalgia Derm: None - Past Surgical History Past Surgical History: Yes - Present Medications Home Medications: Ambulatory Orders Medication Instructions Recorded Confirmed Azithromycin [Zithromax] 250 mg PO DAILY #4 tablet 01/02/17 09/15/17 HYDROcod/ACETAM 5/325 [[place] 5/325] 1 - 2 ea PO Q6H PRN #15 tablet 01/02/17 09/15/17 guaiFENesin/CODEINE [Robitussin AC] 5 - 10 ml PO Q6H PRN #120 ml 01/02/17 09/15/17 Albuterol Sulfate [Proventil Hfa 1 - 2 puffs INH Q4H PRN #1 inhaler 08/27/17 09/15/17 Inhaler] Benzonatate [Tessalon] 100 mg PO TID #14 capsule 08/27/17 09/15/17 predniSONE [Prednisone] 40 mg PO DAILY 5 Days tablet 08/27/17 09/15/17 Cephalexin [Keflex] 500 mg PO Q6H #28 capsule 12/20/17 Ibuprofen [Motrin] 800 mg PO Q8H PRN #30 tablet 12/20/17 Sulfamethox/Trimeth 800/160 1 each PO BID #14 tablet 12/20/17 [Bactrim Ds 800/160] predniSONE [Prednisone] 20 mg PO DAILY #5 tablet 12/20/17 - Allergies Allergies/Adverse Reactions: Allergies Allergy/AdvReac Type Severity Reaction Status Date / Time cherries Allergy Severe Edema Uncoded 12/20/17 03:54 nuts Allergy Severe Edema Uncoded 12/20/17 03:54 - Social History Does the pt smoke?: Yes Smoking Status: Current every day smoker Does the pt drink ETOH?: No Does the pt have substance abuse?: No - Immunizations Immunizations are current?: Yes - POLST Patient has POLST: No PD ED PE NORMAL - Vitals Vital signs reviewed: Yes - General General: Alert and oriented X 3, No acute distress - Derm Derm: Warm and dry - Extremities Extremities: Other (L medial thigh - 0.2 cm indurated area. 3x3cm erythema surrounding with warmth and tenderness. ) - Neuro Neuro: Alert and oriented X 3 Results - Vitals Vitals: Vital Signs - 24 hr 12/20/17 03:49 Temperature 36.2 C L Heart Rate 90 Respiratory 20 Rate Blood Pressure 122/94 H O2 Saturation 96 Oxygen O2 Source Room air PD MEDICAL DECISION MAKING - ED course Complexity details: considered differential, d/w patient ED course: Patient with redness and swelling to the medial left thigh. Unclear etiology if this is allergic or if this is cellulitis. Given a dose of steroids and will place on antibiotics as well. She is well-appearing, nontoxic. No crepitus. No evidence of necrotizing soft tissue infection. Patient counseled regarding signs and symptoms for which I believe and urgent re-evaluation would be necessary. Patient with good understanding of and agreement to plan and is comfortable going home at this time This document was made in part using voice recognition software. While efforts are made to proofread this document, sound alike and grammatical errors may occur. - Sepsis Event Vital Signs: Vital Signs - 24 hr 12/20/17 03:49 Temperature 36.2 C L Heart Rate 90 Respiratory 20 Rate Blood Pressure 122/94 H O2 Saturation 96 Oxygen O2 Source Room air Departure - Departure Disposition: 01 Home, Self Care Clinical Impression: Cellulitis Qualifiers: Site of cellulitis: extremity Site of cellulitis of extremity: lower extremity Laterality: left Qualified Code(s): L03.116 - Cellulitis of left lower limb Condition: Good Instructions: ED Infec Skin Cellulitis Follow-Up: Claudio Matos PA-C [Primary Care Provider] - Within 3 Days (for wound check) Prescriptions: Cephalexin [Keflex] 500 mg PO Q6H #28 capsule Ibuprofen [Motrin] 800 mg PO Q8H PRN #30 tablet PRN Reason: PAIN &/OR FEVER predniSONE [Prednisone] 20 mg PO DAILY #5 tablet Sulfamethox/Trimeth 800/160 [Bactrim Ds 800/160] 1 each PO BID #14 tablet Comments: Take all antibiotics until gone. Return if you worsen. This should start to improve over the next 12-24 hours. Discharge Date/Time: 12/20/17 04:13
== END 2017-12-20 04:13 | disposition home or self-care (01) ==
LOC: ED 03:43
DX: L03.116 Cellulitis of left lower limb (principal); M32.9 Systemic lupus erythematosus, unspecified; M79.7 Fibromyalgia; F17.200 Nicotine dependence, unspecified, uncomplicated; Z86.718 Personal history of other venous thrombosis and embolism
CPT/HCPCS: 99283; A9270; J7512

== ENCOUNTER 2018-04-11 02:45 | Emergency (ER) | payer MEDICAID ==
--- NOTE | 2018-04-11 04:02 | ED Physician Documentation ---
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 patient says she has had similar symptoms before that responded well to oral steroids Review of Systems Constitutional: denies: Fever, Chills, Sweats Cardiac: reports: Chest pain / pressure Respiratory: reports: Cough, Wheezing. denies: Dyspnea PD PAST MEDICAL HISTORY - Past Medical History Past Medical History: Yes Cardiovascular: Deep vein thrombosis Respiratory: Asthma Neuro: Migraines Endocrine/Autoimmune: Systemic lupus erythematosus : None HEENT: None Psych: Depression Musculoskeletal: Fibromyalgia Derm: None - Past Surgical History Past Surgical History: Yes - Present Medications Home Medications: Ambulatory Orders Medication Instructions Recorded Confirmed Azithromycin [Zithromax] 250 mg PO DAILY #4 tablet 01/02/17 09/15/17 HYDROcod/ACETAM 5/325 [[place] 5/325] 1 - 2 ea PO Q6H PRN #15 tablet 01/02/17 09/15/17 guaiFENesin/CODEINE [Robitussin AC] 5 - 10 ml PO Q6H PRN #120 ml 01/02/17 0 09/15/17 Albuterol Sulfate [Proventil Hfa 1 - 2 puffs INH Q4H PRN #1 inhaler 08/27/17 09/15/17 Inhaler] Benzonatate [Tessalon] 100 mg PO TID #14 capsule 08/27/17 09/15/17 predniSONE [Prednisone] 40 mg PO DAILY 5 Days tablet 08/27/17 09/15/17 Cephalexin [Keflex] 500 mg PO Q6H #28 capsule 12/20/17 Ibuprofen [Motrin] 800 mg PO Q8H PRN #30 tablet 12/20/17 Sulfamethox/Trimeth 800/160 1 each PO BID #14 tablet 12/20/17 [Bactrim Ds 800/160] predniSONE [Prednisone] 20 mg PO DAILY #5 tablet 12/20/17 predniSONE [Prednisone] 40 mg PO DAILY 4 Days #8 tablet 04/11/18 - Allergies Allergies/Adverse Reactions: Allergies Allergy/AdvReac Type Severity Reaction Status Date / Time cherries Allergy Severe Edema Uncoded 04/11/18 03:03 nuts Allergy Severe Edema Uncoded 04/11/18 03:03 - Social History Does the pt smoke?: Yes Smoking Status: Current every day smoker Does the pt drink ETOH?: No Does the pt have substance abuse?: No - Immunizations Immunizations are current?: Yes - POLST Patient has POLST: No PD ED PE NORMAL - Vitals Vital signs reviewed: Yes - General General: Alert and oriented X 3, No acute distress, Well developed/nourished - HEENT HEENT: Moist mucous membranes, Pharynx benign - Neck Neck: Supple, no meningeal sign - Cardiac Cardiac: RRR, No murmur, No gallop, No rub - Respiratory Respiratory: No respiratory distress, Clear bilaterally Results - Vitals Vitals: Vital Signs - 24 hr 04/11/18 04/11/18 02:57 04:23 Temperature 36.9 C Heart Rate 98 94 Respiratory 19 20 Rate Blood Pressure 131/84 H 121/74 O2 Saturation 98 96 Oxygen O2 Source Room air PD MEDICAL DECISION MAKING - ED course Complexity details: considered differential, d/w patient Departure - Departure Disposition: 01 Home, Self Care Clinical Impression: Bronchitis Condition: Good Instructions: ED Bronchitis Asthmatic Follow-Up: Claduio Matos PA-C [Primary Care Provider] - Prescriptions: predniSONE [Prednisone] 40 mg PO DAILY 4 Days #8 tablet Discharge Date/Time: 04/11/18 04:30
[2018-04-11] MEDS ORDERED: DEXAMETHASONE 10 MG/ML VIAL PO STA (04:18)
[2018-04-11 04:24] VITALS: BP 121/74
[2018-04-11] MEDS ORDERED: CHERRY SYRUP 10 ML UDC PO ONE (04:28)
== END 2018-04-11 04:30 | disposition home or self-care (01) ==
LOC: ED 02:45
DX: J40 Bronchitis, not specified as acute or chronic (principal); M32.9 Systemic lupus erythematosus, unspecified; F17.200 Nicotine dependence, unspecified, uncomplicated; Z86.718 Personal history of other venous thrombosis and embolism
CPT/HCPCS: 99283; A9270

== ENCOUNTER 2018-07-20 23:10 | Emergency (ER) | payer MEDICAID ==
--- NOTE | 2018-07-20 23:29 | ED Physician Documentation ---
History of Present Illness - Stated complaint Stated Complaint: L ANKLE PAIN - Chief complaint Chief Complaint: Ext Problem - History obtained from History obtained from: Patient - Additonal information Additional information: Patient is a previously healthy 42-year-old female presenting with medial left ankle pain of about 3 to 4 days. Patient reports no specific trauma or fall, but inciting incident of walking and feeling it pop. Patient reports pain with movement and palpation directly over the medial malleolus. Patient denies ecchymosis, swelling, erythema, laceration, abrasion. Patient denies other pain, decreased sensation, decreased strength, or decreased range of motion to the remainder of the lower extremity. Patient has tried bracing, ice, anti- inflammatories without much improvement. No other improving or worsening factors noted. Review of Systems Skin: denies: Lesions, Abrasion (s), Laceration (s) Musculoskeletal: reports: Extremity pain, Joint pain. denies: Joint swelling PD PAST MEDICAL HISTORY - Past Medical History Cardiovascular: Deep vein thrombosis Respiratory: Asthma Neuro: Migraines Endocrine/Autoimmune: Systemic lupus erythematosus : None HEENT: None Psych: Depression Musculoskeletal: Fibromyalgia Derm: None - Past Surgical History Past Surgical History: Yes - Present Medications Home Medications: Ambulatory Orders Medication Instructions Recorded Confirmed Azithromycin [Zithromax] 250 mg PO DAILY #4 tablet 01/02/17 09/15/17 HYDROcod/ACETAM 5/325 [[place] 5/325] 1 - 2 ea PO Q6H PRN #15 tablet 01/02/17 09/15/17 guaiFENesin/CODEINE [Robitussin AC] 5 - 10 ml PO Q6H PRN #120 ml 01/02/17 09/15/17 Albuterol Sulfate [Proventil Hfa 1 - 2 puffs INH Q4H PRN #1 inhaler 08/27/17 09/15/17 Inhaler] Benzonatate [Tessalon] 100 mg PO TID #14 capsule 08/27/17 09/15/17 predniSONE [Prednisone] 40 mg PO DAILY 5 Days tablet 08/27/17 09/15/17 Cephalexin [Keflex] 500 mg PO Q6H #28 capsule 12/20/17 Ibuprofen [Motrin] 800 mg PO Q8H PRN #30 tablet 12/20/17 Sulfamethox/Trimeth 800/160 1 each PO BID #14 tablet 12/20/17 [Bactrim Ds 800/160] predniSONE [Prednisone] 20 mg PO DAILY #5 tablet 12/20/17 predniSONE [Prednisone] 40 mg PO DAILY 4 Days #8 tablet 04/11/18 - Allergies Allergies/Adverse Reactions: Allergies Allergy/AdvReac Type Severity Reaction Status Date / Time cherries Allergy Severe Edema Uncoded 07/20/18 23:18 nuts Allergy Severe Edema Uncoded 07/20/18 23:18 - Social History Does the pt smoke?: Yes Smoking Status: Current every day smoker Does the pt drink ETOH?: No Does the pt have substance abuse?: No - Immunizations Immunizations are current?: Yes - POLST Patient has POLST: No PD ED PE NORMAL - General General: Alert and oriented X 3, No acute distress, Well developed/nourished - Cardiac Cardiac: Strong equal pulses - Respiratory Respiratory: No respiratory distress - Derm Derm: Normal color, Warm and dry, No rash, Other (Superficial thrombophlebitis over left lower extremity, patient reports chronic and unchanged) - Extremities Extremities: No deformity, Normal ROM s pain, No edema. No: No tenderness to palpate (Midly tender to left medial malleoli only) - Neuro Neuro: Alert and oriented X 3, No motor deficit, No sensory deficit - Psych Psych: Normal mood, Normal affect Results - Vitals Vitals: Vital Signs - 24 hr 07/20/18 23:13 Temperature 36.6 C Heart Rate 108 H Respiratory 16 Rate Blood Pressure 139/87 H O2 Saturation 97 Oxygen O2 Source Room air PD MEDICAL DECISION MAKING - ED course Complexity details: reviewed results, re-evaluated patient, considered differential, d/w patient ED course: Do not find evidence of significant sprain on exam, the patient may be experiencing a mild musculoskeletal injury or sprain. Also concern for possible closed fracture given bony tenderness, although plain films returned unremarkable. Do not find evidence to indicate joint infection, cellulitis, gout, DVT or other complicating factor. At this time, I feel that patient is safe to discharge home with supportive cares, appropriate follow-up, and return precautions. Advised patient of results and recommendations and she is comfortable with this plan. Departure - Departure Disposition: 01 Home, Self Care Clinical Impression: Ankle pain, left Qualifiers: Chronicity: acute Qualified Code(s): M25.572 - Pain in left ankle and joints of left foot Condition: Good Instructions: Ankle Sprain Follow-Up: Claudio Matos PA-C [Primary Care Provider] - Within 3 Days Manolo Osborne MD [Provider Admit Priv/Credential] - Within 3 Days Comments: Recommend supportive care such as bracing, elevation, ice application, and anti- inflammatories. May follow-up with primary care physician, orthopedist, or po diatrist in the next 2 to 3 days if symptoms do not improve. Return to ED sooner if experience new injury, worsening symptoms or other concerns.
[2018-07-20 23:35] VITALS: BP 139/87
--- NOTE | 2018-07-21 00:03 | XRAY Report ---
Reason: felt pop in left adam, medial pain Procedure Date: 07/20/2018 Accession Number: [id number] / [id number] Procedure: XR - Ankle 3 View LT CPT Code: FULL RESULT: EXAM: LEFT ANKLE RADIOGRAPHY EXAM DATE: 07/20/2018 11:39 PM. CLINICAL HISTORY: [place] pop in left ankle, medial pain. COMPARISON: None. TECHNIQUE: 3 views. FINDINGS: Bones: Plantar calcaneal spur. No fractures or bone lesions. Joints: No malalignment. Mild degenerative changes about the ankle. Soft Tissues: Normal. No soft tissue swelling. IMPRESSION: 1. No left ankle fracture or malalignment. 2. Mild degenerative changes. RADIA
== END 2018-07-21 00:14 | disposition home or self-care (01) ==
LOC: ED 23:10
DX: M25.572 Pain in left ankle and joints of left foot (principal); I80.02 Phlebitis and thrombophlebitis of superficial vessels of left lower extremity; M32.9 Systemic lupus erythematosus, unspecified; M79.7 Fibromyalgia; F17.200 Nicotine dependence, unspecified, uncomplicated
CPT/HCPCS: 99282

== ENCOUNTER 2019-04-01 03:10 | Emergency (ER) | payer MEDICAID ==
[2019-04-01] MEDS ORDERED: CHERRY SYRUP 10 ML UDC PO ONE (03:32)
[2019-04-01] MEDS ORDERED: DEXAMETHASONE 10 MG/ML VIAL PO STA (03:32)
[2019-04-01] MEDS ORDERED: AZITHROMYCIN 250 MG TABLET PO STA (03:33)
[2019-04-01] MEDS ORDERED: IPRATROPIUM/ALBUTEROL 3 ML NEB INH STA (03:33)
--- NOTE | 2019-04-01 03:35 | ED Physician Documentation ---
PD HPI URI - Stated complaint Stated Complaint: CP/CONGESTION/EAR PRESSURE - Chief complaint Chief Complaint: Resp - History obtained from History obtained from: Patient, Family - History of Present Illness Timing - onset: How many days ago (8) Timing duration: Days (8) Timing details: Gradual onset, Still present Associated symptoms: Nasal congestion, Rhinorrhea, Productive cough, Dyspnea Contributing factors: Sick contact Improves by: Rest, Medication, MDI/nebulizer Worsened by: Activity Similar symptoms before: Diagnosis (OM with asthma exacerbation) Recently seen: Not recently seen - Additional information Additional information: 43-year-old female with a history of asthma has developed a cough and congestion and is producing yellow and green phlegm. She is not getting adequate relief with her inhaler at home and she has come to the emergency department this morning with increased shortness of breath. She is had a similar episode about 1 year ago and required the use of a course of prednisone. At that time she had otitis as well. She believes the antibiotic helped clear things up within a short period of time. 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 : None HEENT: None Psych: Depression Musculoskeletal: Fibromyalgia Derm: None - Past Surgical History Past Surgical History: Yes - Present Medications Home Medications: Ambulatory Orders Medication Instructions Recorded Confirmed Azithromycin [Zithromax] 250 mg PO DAILY #4 tablet 01/02/17 09/15/17 HYDROcod/ACETAM 5/325 [[place] 5/325] 1 - 2 ea PO Q6H PRN #15 tablet 01/02/17 09/15/17 guaiFENesin/CODEINE [Robitussin AC] 5 - 10 ml PO Q6H PRN #120 ml 01/02/17 09/15/17 Albuterol Sulfate [Proventil Hfa 1 - 2 puffs INH Q4H PRN #1 inhaler 08/27/17 09/15/17 Inhaler] Benzonatate [Tessalon] 100 mg PO TID #14 capsule 08/27/17 09/15/17 predniSONE [Prednisone] 40 mg PO DAILY 5 Days tablet 08/27/17 09/15/17 Cephalexin [Keflex] 500 mg PO Q6H #28 capsule 12/20/17 Ibuprofen [Motrin] 800 mg PO Q8H PRN #30 tablet 12/20/17 Sulfamethox/Trimeth 800/160 1 each PO BID #14 tablet 12/20/17 [Bactrim Ds 800/160] predniSONE [Prednisone] 20 mg PO DAILY #5 tablet 12/20/17 predniSONE [Prednisone] 40 mg PO DAILY 4 Days #8 tablet 04/11/18 Albuterol Sulfate 1.25 mg IH Q4HR PRN #30 units 04/01/19 Azithromycin [Zithromax] 250 mg PO DAILY #4 tablet 04/01/19 predniSONE [Deltasone] 10 mg PO ONCE #26 tablet 04/01/19 - Allergies Allergies/Adverse Reactions: Allergies Allergy/AdvReac Type Severity Reaction Status Date / Time cherries Allergy Severe Edema Uncoded 07/20/18 23:18 nuts Allergy Severe Edema Uncoded 07/20/18 23:18 - Social History Does the pt smoke?: Yes Smoking Status: Current every day smoker Does the pt drink ETOH?: No Does the pt have substance abuse?: No - Immunizations Immunizations are current?: Yes - POLST Patient has POLST: No PD ED PE NORMAL - Vitals Vital signs reviewed: Yes - General General: Alert and oriented X 3, No acute distress, Well developed/nourished - HEENT HEENT: Atraumatic, PERRL, EOMI, Pharynx benign, Other (both TM's are inflamed along the umbo with some distortion the left is worse than the right. There is some inflamation to the canal on the left. ) - Neck Neck: Supple, no meningeal sign, No bony TTP - Cardiac Cardiac: RRR, No murmur - Respiratory Respiratory: No respiratory distress, Other (diminished breath sounds bilat) - Abdomen Abdomen: Soft, Non tender - Back Back: No CVA TTP, No spinal TTP - Derm Derm: Normal color, Warm and dry, No rash - Extremities Extremities: No deformity, No edema, No calf tenderness / cord - Neuro Neuro: Alert and oriented X 3, shuttler 2-12 intact, No motor deficit, No sensory deficit, Normal speech Eye Opening: Spontaneous Motor: Obeys Commands Verbal: Oriented GCS Score: 15 - Psych Psych: Normal mood, Normal affect Results - Vitals Vitals: Vital Signs - 24 hr 04/01/19 04/01/19 03:15 03:54 Temperature 36.4 C L Heart Rate 108 H 89 Respiratory 17 18 Rate Blood Pressure 90/68 O2 Saturation 96 Oxygen O2 Source Room air PD MEDICAL DECISION MAKING - ED course Complexity details: reviewed old records, reviewed results, re-evaluated patient, considered differential, d/w patient, d/w family ED course: 43-year-old female with a history of asthma does have otitis again today she is coughing up yellow-green phlegm and she has diminished breath sounds. She is administered dexamethasone 10 mg here in the emergency department we have placed her back on to some azithromycin as is worked previously and we will put her on a course of prednisone as well. She is given a DuoNeb treatment here in the emergency department. Departure - Departure Disposition: Home, Self Care Clinical Impression: Otitis media Qualifiers: Otitis media type: suppurative Chronicity: acute Laterality: bilateral Recurrence: recurrent Spontaneous tympanic membrane rupture: without spontaneous rupture Qualified Code(s): H66.006 - Acute suppurative otitis media without spontaneous rupture of ear drum, recurrent, bilateral Asthma Qualifiers: Asthma severity: mild Asthma persistence: intermittent Asthma complication type: with acute exacerbation Qualified Code(s): J45.21 - Mild intermittent a sthma with (acute) exacerbation Condition: Stable Instructions: ED Reactive Airway Disease, ED Otitis Media Acute Adult Prescriptions: Albuterol Sulfate 1.25 mg IH Q4HR PRN #30 units PRN Reason: soa Azithromycin [Zithromax] 250 mg PO DAILY #4 tablet predniSONE [Deltasone] 10 mg PO ONCE #26 tablet
[2019-04-01] MEDS ORDERED: ALBUTEROL NEB 2.5 MG/3 ML INH STA (03:52)
[2019-04-01] MEDS ORDERED: ALBUTEROL NEB 2.5 MG/3 ML INH ONE (03:52)
[2019-04-01 04:31] VITALS: BP 132/77
== END 2019-04-01 04:40 | disposition home or self-care (01) ==
LOC: ED 03:10
DX: H66.006 Acute suppurative otitis media without spontaneous rupture of ear drum, recurrent, bilateral (principal); J45.21 Mild intermittent asthma with (acute) exacerbation; F17.200 Nicotine dependence, unspecified, uncomplicated; Z79.899 Other long term (current) drug therapy
CPT/HCPCS: 94640; 99284; A9270

== ENCOUNTER 2019-04-15 18:56 | Emergency (ER) | payer MEDICAID ==
[2019-04-15] MEDS ORDERED: DEXAMETHASONE 10 MG/ML VIAL PO STA (20:42)
--- NOTE | 2019-04-15 20:45 | ED Physician Documentation ---
History of Present Illness - Stated complaint Stated Complaint: LT EAR/FACE/NECK PAIN - Chief complaint Chief Complaint: Heent - History obtained from History obtained from: Patient - History of Present Illness Timing: How many weeks ago (3) Pain level max: 6 Pain level now: 5 Improved by: nothing Worsened by: nothing - Additonal information Additional information: 43-year-old female presents to the emergency department stating that she has continued left ear pain. She was treated for an otitis media a few weeks ago. States that the pain haNo fevers. Mild cough. No vomiting. No abdominal pain.s never resolved. Also having left-sided neck pain. 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 : None HEENT: None Psych: Depression Musculoskeletal: Fibromyalgia Derm: None - Past Surgical History Past Surgical History: Yes - Present Medications Home Medications: Ambulatory Orders Medication Instructions Recorded Confirmed Azithromycin [Zithromax] 250 mg PO DAILY #4 tablet 01/02/17 09/15/17 HYDROcod/ACETAM 5/325 [[place] 5/325] 1 - 2 ea PO Q6H PRN #15 tablet 01/02/17 09/15/17 guaiFENesin/CODEINE [Robitussin AC] 5 - 10 ml PO Q6H PRN #120 ml 01/02/17 09/15/17 Albuterol Sulfate [Proventil Hfa 1 - 2 puffs INH Q4H PRN #1 inhaler 08/27/17 09/15/17 Inhaler] Benzonatate [Tessalon] 100 mg PO TID #14 capsule 08/27/17 09/15/17 predniSONE [Prednisone] 40 mg PO DAILY 5 Days tablet 08/27/17 09/15/17 Cephalexin [Keflex] 500 mg PO Q6H #28 capsule 12/20/17 Ibuprofen [Motrin] 800 mg PO Q8H PRN #30 tablet 12/20/17 Sulfamethox/Trimeth 800/160 1 each PO BID #14 tablet 12/20/17 [Bactrim Ds 800/160] predniSONE [Prednisone] 20 mg PO DAILY #5 tablet 12/20/17 predniSONE [Prednisone] 40 mg PO DAILY 4 Days #8 tablet 04/11/18 Albuterol Sulfate 1.25 mg IH Q4HR PRN #30 units 04/01/19 Azithromycin [Zithromax] 250 mg PO DAILY #4 tablet 04/01/19 predniSONE [Deltasone] 10 mg PO ONCE #26 tablet 04/01/19 Cetirizine HCl/Pseudoephedrine 1 each PO BID PRN #30 tab.er.12h 04/15/19 [Zyrtec-D Tablet] Ibuprofen [Motrin] 800 mg PO Q8H PRN #30 tablet 04/15/19 predniSONE [Deltasone] 10 mg PO [id number] #42 tab 04/15/19 - Allergies Allergies/Adverse Reactions: Allergies Allergy/AdvReac Type Severity Reaction Status Date / Time cherries Allergy Severe Edema Uncoded 04/15/19 19:13 nuts Allergy Severe Edema Uncoded 04/15/19 19:13 - Social History Does the pt smoke?: Yes Smoking Status: Current every day smoker Does the pt drink ETOH?: No Does the pt have substance abuse?: No - Immunizations Immunizations are current?: Yes - POLST Patient has POLST: No PD ED PE NORMAL - Vitals Vital signs reviewed: Yes - General General: Alert and oriented X 3, No acute distress - HEENT HEENT: Moist mucous membranes, Other (Normal right TM. Left TM has a small amount of fluid but no erythema or infection.) - Neck Neck: Supple, no meningeal sign, Other (Shotty anterior lymphadenopathy and posterior lymphadenopathy in the cervical chain on the left side of the neck.) - Cardiac Cardiac: RRR - Respiratory Respiratory: No respiratory distress, Clear bilaterally - Abdomen Abdomen: Soft, Non tender, Non distended - Derm Derm: Warm and dry - Neuro Neuro: Alert and oriented X 3 - Psych Psych: Normal mood, Normal affect Results - Vitals Vitals: Vital Signs - 24 hr 04/15/19 04/15/19 19:13 21:04 Temperature 36.9 C 36.8 C Heart Rate 103 H 98 Respiratory 15 16 Rate Blood Pressure 137/74 H 120/77 O2 Saturation 97 96 Oxygen O2 Source Room air PD MEDICAL DECISION MAKING - ED course Complexity details: considered differential, d/w patient ED course: Patient appears to have a lymphadenitis, likely reactive from the viral infection. Also appears to have a serous otitis. Will place on decongestants and steroids for home. Patient is well-appearing, nontoxic. Afebrile. Patient counseled regarding signs and symptoms for which I believe and urgent re- evaluation would be necessary. Patient with good understanding of and agreement to plan and is comfortable going home at this time This document was made in part using voice recognition software. While efforts a re made to proofread this document, sound alike and grammatical errors may occur. Departure - Departure Disposition: Home, Self Care Clinical Impression: Lymphadenitis Serous otitis media Qualifiers: Chronicity: acute Laterality: left Recurrence: non-recurrent Qualified Code(s): H65.02 - Acute serous otitis media, left ear Condition: Good Instructions: ED Cervical Adenitis No Abx Tx Follow-Up: your,doctor in 1 week [Other] Prescriptions: Cetirizine HCl/Pseudoephedrine [Zyrtec-D Tablet] 1 each PO BID PRN #30 tab.er.12h PRN Reason: nasal congestion Ibuprofen [Motrin] 800 mg PO Q8H PRN #30 tablet PRN Reason: PAIN &/OR FEVER predniSONE [Deltasone] 10 mg PO [id number] #42 tab Comments: Use the medications as prescribed. Return if you worsen. Follow-up with your doctor for further care. This should improve over the next week. Forms: Activity restrictions Discharge Date/Time: 04/15/19 21:04
[2019-04-15] MEDS ORDERED: DEXAMETHASONE 10 MG/ML VIAL ONE (20:51)
[2019-04-15 21:12] VITALS: BP 120/77
== END 2019-04-15 21:04 | disposition home or self-care (01) ==
LOC: ED 18:56
DX: H65.02 Acute serous otitis media, left ear (principal); I88.9 Nonspecific lymphadenitis, unspecified; M32.9 Systemic lupus erythematosus, unspecified; F17.200 Nicotine dependence, unspecified, uncomplicated
CPT/HCPCS: 99283; 99284

== ENCOUNTER 2019-07-08 08:19 | Outpatient (CLI) | payer MEDICAID ==
--- NOTE | 2019-07-08 08:37 | XRAY Report ---
Reason: RIGHT SHOULDER IMPINGEMENT SYNDROME Procedure Date: 07/08/2019 Accession Number: [id number] / [id number] Procedure: WCP - Shoulder 3 View RT CPT Code: Final Report FULL RESULT: EXAM: RIGHT SHOULDER RADIOGRAPHY EXAM DATE: 07/08/2019 08:19 AM. CLINICAL HISTORY: Right shoulder impingement syndrome. COMPARISON: None. TECHNIQUE: 3 views. FINDINGS: Bones: . No fracture or bone lesion. Joints: . The glenohumeral and acromioclavicular joints are normal. Soft tissues: The visualized hemithorax is unremarkable. No soft tissue swelling. IMPRESSION: Examination within normal limits. RADIA
== END 2019-07-08 23:59 | disposition home or self-care (01) ==
LOC: DI.WCP 08:19
PROVIDERS: ATTEND Physician Assistant Medical
DX: M75.41 Impingement syndrome of right shoulder (principal)

== ENCOUNTER 2019-10-07 12:08 | Emergency (ER) | payer MEDICAID ==
[2019-10-07] MEDS ORDERED: KETOROLAC 60 MG/2 ML VIAL IM STA (12:26)
--- NOTE | 2019-10-07 12:28 | ED Physician Documentation ---
PD HPI LOWER EXT INJURY - Stated complaint Stated Complaint: RT ANKLE INJURY - Chief complaint Chief Complaint: Ext Problem - History obtained from History obtained from: Patient - History of Present Illness PD HPI LOW EXT INJURY LOCATION: Right, Ankle, Foot Type of injury: Fall Where injury occurred: Home Timing - onset: How many minutes ago (90) Timing - details: Abrupt onset Improved by: Immobilization Worsened by: Moving, Palpating Associated symptoms: Swelling. No: Weakness, Numbness, Tingling, Discolored Similar symptoms before: Other (hx of ankle fracture almost 30 years ago) - Additional information Additional information: 44-year-old female presents to the emergency department with acute onset right ankle pain. Reports she was descending stairs when she tripped and landed wrong on her right foot and ankle. She had immediate swelling on the right lateral malleolus. She is unable to bear weight. She reports that when she was a teenager she fractured her ankle but is unable to tell me whether it was a fibular, tibia or combined tib-fib fracture. Patient appears uncomfortable. She is not taking any anticoagulants. Denies any pertinent past medical history. Denies possibility of . 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 HEENT: None Psych: Depression Musculoskeletal: Fibromyalgia Derm: None - Past Surgical History Past Surgical History: Yes - Present Medications Home Medications: Ambulatory Orders Medication Instructions Recorded Confirmed Azithromycin [Zithromax] 250 mg PO DAILY #4 tablet 01/02/17 09/15/17 HYDROcod/ACETAM 5/325 [[place] 5/325] 1 - 2 ea PO Q6H PRN #15 tablet 01/02/17 09/15/17 guaiFENesin/CODEINE [Robitussin AC] 5 - 10 ml PO Q6H PRN #120 ml 01/02/17 09/15/17 Albuterol Sulfate [Proventil Hfa 1 - 2 puffs INH Q4H PRN #1 inhaler 08/27/17 09/15/17 Inhaler] Benzonatate [Tessalon] 100 mg PO TID #14 capsule 08/27/17 09/15/17 predniSONE [Prednisone] 40 mg PO DAILY 5 Days tablet 08/27/17 09/15/17 Cephalexin [Keflex] 500 mg PO Q6H #28 capsule 12/20/17 Ibuprofen [Motrin] 800 mg PO Q8H PRN #30 tablet 12/20/17 Sulfamethox/Trimeth 800/160 1 each PO BID #14 tablet 12/20/17 [Bactrim Ds 800/160] predniSONE [Prednisone] 20 mg PO DAILY #5 tablet 12/20/17 predniSONE [Prednisone] 40 mg PO DAILY 4 Days #8 tablet 04/11/18 Albuterol Sulfate 1.25 mg IH Q4HR PRN #30 units 04/01/19 Azithromycin [Zithromax] 250 mg PO DAILY #4 tablet 04/01/19 predniSONE [Deltasone] 10 mg PO ONCE #26 tablet 04/01/19 Cetirizine HCl/Pseudoephedrine 1 each PO BID PRN #30 tab.er.12h 04/15/19 [Zyrtec-D Tablet] Ibuprofen [Motrin] 800 mg PO Q8H PRN #30 tablet 04/15/19 predniSONE [Deltasone] 10 mg PO [id number] #42 tab 04/15/19 Ibuprofen [Motrin] 600 mg PO Q6H PRN #30 tab 10/07/19 - Allergies Allergies/Adverse Reactions: Allergies Allergy/AdvReac Type Severity Reaction Status Date / Time cherries Allergy Severe Edema Uncoded 10/07/19 12:15 nuts Allergy Severe Edema Uncoded 10/07/19 12:15 - Social History Does the pt smoke?: Yes Smoking Status: Current every day smoker Does the pt drink ETOH?: Yes Does the pt have substance abuse?: No - Immunizations Immunizations are current?: Yes - POLST Patient has POLST: No PD ED PE EXPANDED - General General: Alert, In Pain - Cardiac Cardiac: Regular Rate, Radial strong equal, Pedal strong equal - Respiratory Respiratory: Clear to ausultation luis fernando. No: Labored, Stridor - Extremities Extremities: Tenderness, Limited ROM, Swelling, Right ankle (Swelling right lateral malleolus with tenderness to palpation. No tenderness of the medial malleolus or Achilles. Limited range of motion secondary to pain. Improved range of motion with passive rotation. No deformity noted), Right foot (2+ distal DP pulse. No tenderness of the metatarsals. No pain elicited with palpation of the heel or the fifth proximal metatarsal.), Pedal Pulses Present, Sensory intact, Tendon intact. No: Deformity Results - Vitals Vitals: Vital Signs - 24 hr 10/07/19 12:13 Temperature 36.3 C L Heart Rate 82 Respiratory 16 Rate Blood Pressure 123/82 H O2 Saturation 98 Oxygen O2 Source Room air - Rads (name of study) Right foot/ankle: Radiology: Final report received (No acute fracture or dislocation. Soft tissue swelling) PD MEDICAL DECISION MAKING - ED course Complexity details: reviewed results, re-evaluated patient, d/w patient ED course: 44-year-old female presents to the emergency department with acute onset right ankle pain that she sustained after falling when she was descending stairs. She has marked swelling and ecchymosis of the right lateral malleolus with decreased range of motion secondary to pain. No deformity noted - X-ray negative for acute fracture or dislocation. Patient will be placed in an air splint and given crutches. I advised rice precautions and will rx NSAID - I discussed with patient that sometimes subtle fractures are missed on initial imaging of the foot and ankle. Therefore advised that if pain, swelling, or ability to bear weight is not markedly better in 7 to 10 days she should return for repeat imaging. Departure - Departure Disposition: 01 Home, Self Care Clinical Impression: Ankle pain Qualifiers: Chronicity: acute Laterality: right Qualified Code(s): M25.571 - Pain in right ankle and joints of right foot Condition: Stable Instructions: Ankle Sprain Prescriptions: Ibuprofen [Motrin] 600 mg PO Q6H PRN #30 tab PRN Reason: Pain Comments: Don the x-ray of your foot and ankle do not show any obvious fractures at this time. You likely have a severe sprain or contusion. If your ability to bear weight and pain is not markedly better in 7 to 10 days then return for repeat imaging to make sure that a subtle or 2 small to miss fracture is not present I recommend that you wear the air splint when out of bed and use crutches to aid in ambulation. I would also advise that you ice the ankle for about 10 minutes 3 times a day for the next 2 to 3 days. I have prescribed ibuprofen for pain.
--- NOTE | 2019-10-07 13:00 | XRAY Report ---
PROCEDURE: Ankle 3 View RT INDICATIONS: fall, right ankle pain TECHNIQUE: 3 views of the ankle were acquired. COMPARISON: None FINDINGS: Bones: No fractures or dislocations. Ankle mortise is normally aligned. No suspicious bony lesions . Soft tissues: No tibiotalar joint effusion. Achilles tendon appears normal. IMPRESSION: No trauma found, to the osseous structures. Mild soft tissue swelling laterally. Reviewed by: Rios Arciniega MD on 10/07/2019 12:59 PM PDT Approved by: Rios Arciniega MD on 10/07/2019 12:59 PM PDT Station ID: [id number]
--- NOTE | 2019-10-07 13:05 | XRAY Report ---
PROCEDURE: Foot 3 View RT INDICATIONS: fall, pain TECHNIQUE: 3 views of the foot were acquired. COMPARISON: Ankle plain film same day FINDINGS: Bones: No fractures or dislocations. No suspicious bony lesions. Soft tissues: No tibiotalar joint effusion. Achilles tendon appears normal. IMPRESSION: Soft tissue swelling laterally, no fracture found. Reviewed by: Rios Arciniega MD on 10/07/2019 1:03 PM PDT Approved by: Rios Arciniega MD on 10/07/2019 1:03 PM PDT Station ID: [id number]
[2019-10-07 13:33] VITALS: BP 139/75
== END 2019-10-07 13:37 | disposition home or self-care (01) ==
LOC: ED 12:08
DX: M25.571 Pain in right ankle and joints of right foot (principal); F17.200 Nicotine dependence, unspecified, uncomplicated
CPT/HCPCS: 96372; 99283

== ENCOUNTER 2019-11-15 15:48 | Outpatient (CLI) | payer MEDICAID ==
--- NOTE | 2019-11-15 17:33 | MRI Report ---
PROCEDURE: Ankle RT W/O INDICATIONS: RT ANKLE PAIN TECHNIQUE: Noncontrast Magnetic Resonance Imaging (MRI) of the ankle/hindfoot was performed utilizing the follow ing sequences: sagittal T1 spin echo, sagittal STIR, axial PD fast spin echo, axial T2 fast spin echo with fat saturation, coronal T2 spin echo with fat saturation, and coronal T1 fast spin echo. COMPARISON: Right ankle radiographs dated 10/07/2019 FINDINGS: Image quality: Diagnostic. Bones and joints: Mild trabecular bone injury is seen in the medial aspect of the talar neck. No acute fracture is seen . There is a small mortise joint effusion. Partial thickness cartilage irregularity is seen in the m ortise joint without a focal osteochondral lesion. No significant degenerative changes of the midfoot or hindfoot joints are present. Medial structures: The deltoid ligament is increased in signal intensity, most likely related to a contusion or low-grad e sprain. The posterior tibialis, flexor digitorum longus, and flexor hallucis longus tendons are int act and within normal limits. The posterior tibial neurovascular bundle appears normal within the tar abilio tunnel, without extrinsic mass effect. Lateral structures: The anterior and posterior distal tibiofibular ligaments are also intact. There is complete tearing o f the anterior talofibular ligament. The calcaneofibular ligament is also torn. The posterior talofib ular ligament is intact. There is overlying subcutaneous soft tissue edema. The peroneus longus and peroneus brevis tendons are surrounded by a small amount of fluid, compatible with tenosynovitis. The sinus tarsi demonstrates normal fatty signal. Anterior structures: The tibialis anterior, extensor hallucis longus, and extensor digitorum longus tendons appear intact. Posterior and plantar structures: The Achilles tendon is intact. The medial and lateral bands of the plantar fascia are within normal l imits. A small nonedematous plantar calcaneal spur is present. IMPRESSION: 1. Complete tearing of the anterior talofibular ligament and the calcaneofibular ligament. 2. Mild trabecular bone injury in the medial aspect of the talar neck. 3. Increased signal in the deltoid ligament is likely secondary to a ligamentous contusion or low gr abiel sprain. 4. Mild tenosynovitis of the peroneus brevis and longus tendons. Reviewed by: Wero Mclean MD on 11/15/2019 5:31 PM PDT Approved by: Wero Mclean MD on 11/15/2019 5:31 PM PDT Station ID: [id number]
== END 2019-11-15 15:49 | disposition home or self-care (01) ==
LOC: DI 15:48
PROVIDERS: ATTEND Physician Assistant Medical
DX: S93.491A Sprain of other ligament of right ankle, initial encounter (principal); S93.411A Sprain of calcaneofibular ligament of right ankle, initial encounter; M65.871 Other synovitis and tenosynovitis, right ankle and foot; R93.6 Abnormal findings on diagnostic imaging of limbs

== ENCOUNTER 2020-03-14 15:13 | Outpatient (CLI) | payer MEDICAID | END 2020-03-14 15:14 | disposition home or self-care (01) | LOC: COV 15:13 | PROVIDERS: ATTEND Family Medicine | DX: R05 Cough (principal); R06.02 Shortness of breath; R07.0 Pain in throat; R09.81 Nasal congestion; J34.89 Other specified disorders of nose and nasal sinuses; Z20.828 Contact with and (suspected) exposure to other viral communicable diseases ==

== ENCOUNTER 2020-06-22 14:05 | Outpatient (CLI) | payer MEDICAID ==
[2020-06-22 17:52] LABS: BASOPHILS # (AUTO) 0.1 10^3/uL (0.0-0.1); BASOPHILS % (AUTO) 0.9 %; EOSINOPHILS # (AUTO) 0.3 10^3/uL (0.0-0.7); EOSINOPHILS % (AUTO) 3.9 %; HCT - HEMATOCRIT 41.5 % (37.0-47.0); HGB - HEMOGLOBIN 13.7 g/dL (12.0-16.0); LYMPHOCYTES % (AUTO) 37.2 %; MEAN CORPUSCULAR HEMOGLOBIN 31.1 pg (27.0-31.0); MEAN CORPUSCULAR VOLUME 94.1 fL (81.0-99.0); MEAN PLATELET VOLUME 10.5 fL (7.9-10.8); MONOCYTES # (AUTO) 0.5 10^3/uL (0.0-1.0); MONOCYTES % (AUTO) 6.5 %; NEUTROPHILS # (AUTO) 4.2 10^3/uL (1.5-6.6); NEUTROPHILS % (AUTO) 51.1 %; PLT - PLATELET COUNT 336 10^3/uL (130-450); RED BLOOD COUNT 4.41 10^6/uL (4.20-5.40); RED CELL DISTRIBUTION WIDTH 13.2 % (12.0-15.0); WHITE BLOOD COUNT 8.2 x10^3/uL (4.8-10.8)
[2020-06-22 18:04] LABS: ALBUMIN 4.4 g/dL (3.2-5.5); ALBUMIN/GLOBULIN RATIO 1.4 (1.0-2.2); BILIRUBIN,TOTAL 0.6 mg/dL (0.2-1.0); CALCIUM 9.3 mg/dL (8.5-10.3); CREATININE 0.6 mg/dL (0.4-1.0); POTASSIUM 4.4 mmol/L (3.5-5.0); TOTAL PROTEIN 7.6 g/dL (6.7-8.2)
== END 2020-06-22 23:59 | disposition home or self-care (01) ==
LOC: LAB.N 14:05
PROVIDERS: ATTEND Nurse Practitioner
DX: R10.9 Unspecified abdominal pain (principal)
CPT/HCPCS: 36415; 80053; 82150; 83690; 85025; 87086

== ENCOUNTER 2021-01-08 08:47 | Outpatient (CLI) | payer MEDICAID | END 2021-01-08 23:59 | disposition home or self-care (01) | LOC: LAB.N 08:47 | PROVIDERS: ATTEND Physician Assistant Medical | DX: R05.8 Other specified cough (principal); Z20.822 Contact with and (suspected) exposure to COVID-19 ==

== ENCOUNTER 2021-01-18 18:42 | Emergency (ER) | payer MEDICAID ==
[2021-01-18 19:10] LABS: BASOPHILS # (AUTO) 0.1 10^3/uL (0.0-0.1); BASOPHILS % (AUTO) 0.9 %; EOSINOPHILS # (AUTO) 0.2 10^3/uL (0.0-0.7); EOSINOPHILS % (AUTO) 2.9 %; HCT - HEMATOCRIT 40.7 % (37.0-47.0); HGB - HEMOGLOBIN 13.9 g/dL (12.0-16.0); LYMPHOCYTES # (AUTO) 3.2 10^3/uL (1.5-3.5); LYMPHOCYTES % (AUTO) 39.1 %; MEAN CORPUSCULAR HEMOGLOBIN 31.3 pg (27.0-31.0); MEAN CORPUSCULAR HGB CONC 34.2 g/dL (32.0-36.0); MEAN CORPUSCULAR VOLUME 91.7 fL (81.0-99.0); MEAN PLATELET VOLUME 9.7 fL (7.9-10.8); MONOCYTES # (AUTO) 0.4 10^3/uL (0.0-1.0); MONOCYTES % (AUTO) 4.7 %; NEUTROPHILS # (AUTO) 4.2 10^3/uL (1.5-6.6); PLT - PLATELET COUNT 303 10^3/uL (130-450); RED BLOOD COUNT 4.44 10^6/uL (4.20-5.40); WHITE BLOOD COUNT 8.1 x10^3/uL (4.8-10.8)
--- NOTE | 2021-01-18 19:19 | ED Physician Documentation ---
PD HPI ABD PAIN - Stated complaint Stated Complaint: LT SIDE FLANK PX - Chief complaint Chief Complaint: Abd Pain - History obtained from History obtained from: Patient - History of Present Illness Timing - onset: How many days ago (few) Timing - duration: Days (few) Timing - details: Gradual onset (having some aching pain left low back for few days, much worse today. Increased with ROM. No particular injury. Radiates to left low abdomen.) Quality: Aching, Pain Location: LLQ Radiation: Lower back (near sacroiliac area.) Improved by: No: Eating, Laying still Worsened by: Moving, Position. No: Eating, Breathing Associated symptoms: Other (no skin rash nor sores.). 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 HEENT: None Psych: Depression Musculoskeletal: Fibromyalgia Derm: None - Past Surgical History Past Surgical History: Yes - Present Medications Home Medications: Ambulatory Orders Medication Instructions Recorded Confirmed Azithromycin [Zithromax] 250 mg PO DAILY #4 tablet 01/02/17 09/15/17 HYDROcod/ACETAM 5/325 [[place] 5/325] 1 - 2 ea PO Q6H PRN #15 tablet 01/02/17 09/15/17 guaiFENesin/CODEINE [Robitussin AC] 5 - 10 ml PO Q6H PRN #120 ml 01/02/17 09/15/17 Albuterol Sulfate [Proventil Hfa 1 - 2 puffs INH Q4H PRN #1 inhaler 08/27/17 09/15/17 Inhaler] Benzonatate [Tessalon] 100 mg PO TID #14 capsule 08/27/17 09/15/17 predniSONE [Prednisone] 40 mg PO DAILY 5 Days tablet 08/27/17 09/15/17 Ibuprofen [Motrin] 800 mg PO Q8H PRN #30 tablet 12/20/17 Sulfamethox/Trimeth 800/160 1 each PO BID #14 tablet 12/20/17 [Bactrim Ds 800/160] cephALEXin [Keflex] 500 mg PO Q6H #28 capsule 12/20/17 predniSONE [Prednisone] 20 mg PO DAILY #5 tablet 12/20/17 predniSONE [Prednisone] 40 mg PO DAILY 4 Days #8 tablet 04/11/18 Albuterol Sulfate 1.25 mg IH Q4HR PRN #30 units 04/01/19 Azithromycin [Zithromax] 250 mg PO DAILY #4 tablet 04/01/19 predniSONE [Deltasone] 10 mg PO ONCE #26 tablet 04/01/19 Cetirizine HCl/Pseudoephedrine 1 each PO BID PRN #30 tab.er.12h 04/15/19 [Zyrtec-D Tablet] Ibuprofen [Motrin] 800 mg PO Q8H PRN #30 tablet 04/15/19 predniSONE [Deltasone] 10 mg PO [id number] #42 tab 04/15/19 Ibuprofen [Motrin] 600 mg PO Q6H PRN #30 tab 10/07/19 Oxycodone HCl/Acetaminophen 1 each PO Q6H PRN #14 tablet 01/18/21 [Percocet 5-325 mg Tablet] dexAMETHasone [Decadron] 4 mg PO DAILY #5 tablet 01/18/21 tiZANidine [Zanaflex] 4 mg PO Q8H PRN #20 tablet 01/18/21 - Allergies Allergies/Adverse Reactions: Allergies Allergy/AdvReac Type Severity Reaction Status Date / Time cherries Allergy Severe Edema Uncoded 01/18/21 18:44 nuts Allergy Severe Edema Uncoded 01/18/21 18:44 - Social History Does the pt smoke?: Yes Smoking Status: Current every day smoker Does the pt drink ETOH?: Yes Does the pt have substance abuse?: No - Immunizations Immunizations are current?: Yes - POLST Patient has POLST: No PD ED PE NORMAL - Vitals Vital signs reviewed: Yes - General General: Alert and oriented X 3, Well developed/nourished, Other (appears in pain, worse with movement of low back. ) - Neck Neck: Supple, no meningeal sign, No adenopathy - Cardiac Cardiac: RRR, No murmur - Respiratory Respiratory: Clear bilaterally - Abdomen Abdomen: Normal bowel sounds, Soft, Non distended, No organomegaly, Other (some tender to left lower abd/inguinal area without masses. Mostly tender left upper SI area and pain with ROM of the low back. No CVA tenderness per se. ) - Back Back: No CVA TTP, No spinal TTP (but is tender left SI and iliac crest area. ) - Derm Derm: Normal color, Warm and dry, No rash - Extremities Extremities: No edema, No calf tenderness / cord, Other (left hip with good ROM and no pain of hip. low back and lateral side hurt with dross legged movement of left leg. ) - Neuro Neuro: Alert and oriented X 3, No motor deficit, No sensory deficit, Normal speech Results - Vitals Vitals: Oxygen O2 Source Room air - Labs Labs: Laboratory Tests 01/18/21 01/18/21 01/18/21 19:00 19:00 19:36 WBC 8.1 RBC 4.44 Hgb 13.9 Hct 40.7 MCV 91.7 MCH 31.3 H MCHC 34.2 RDW 13.0 Plt Count 303 MPV 9.7 Neut # (Auto) 4.2 Lymph # (Auto) 3.2 Starke # (Auto) 0.4 Eos # (Auto) 0.2 Baso # (Auto) 0.1 Absolute Nucleated RBC 0.00 Nucleated RBC % 0.0 Sodium 140 Potassium 4.0 Chloride 106 Carbon Dioxide 25 Anion Gap 9.0 BUN 10 Creatinine 0.8 Estimated GFR (MDRD) 78 L Glucose 136 H Calcium 8.8 Total Bilirubin 0.8 AST 25 ALT 40 Alkaline Phosphatase 63 Total Protein 7.2 Albumin 4.2 Globulin 3.0 Albumin/Globulin Ratio 1.4 Lipase 37 Urine Color YELLOW Urine Clarity CLEAR Urine pH 7.0 Ur Specific [place] 1.020 Urine Protein NEGATIVE Urine Glucose (UA) NEGATIVE Urine Ketones NEGATIVE Urine Occult Blood NEGATIVE Urine Nitrite NEGATIVE Urine Bilirubin NEGATIVE Urine Urobilinogen 0.2 (NORMAL) Ur Leukocyte Esterase NEGATIVE Ur Microscopic Review NOT INDICATED Urine Culture Comments NOT INDICATED Urine HCG, Qual NEGATIVE - Rads (name of study) abd/pelvic CT Radiology: Prelim report reviewed (no acute abnormality to explain the pain.), See rad report PD MEDICAL DECISION MAKING - ED course Complexity details: reviewed results (normal labs and CT. ), re-evaluated patient (improved pain but still hurts with ROM low back after meds. ), considered differential (low back pain with ROM but some tender to left lower abd and side. Consider muscular, versus like stone, or ruptured cyst with ple klaus floor spasms, sacroiliitis, early shingles, etc.), d/w patient Departure - Departure Disposition: 01 Home, Self Care Clinical Impression: Left low back pain Qualifiers: Chronicity: acute Sciatica presence: without sciatica Qualified Code(s): M54.50 - Low back pain, unspecified Sacroiliac (ligament) sprain Qualifiers: Encounter type: initial encounter Qualified Code(s): S33.6XXA - Sprain of sacroiliac joint, initial encounter Condition: Stable Instructions: ED Low Back Pain Injury Follow-Up: Jacqueline Irwin ARNP [Primary Care Provider] - Prescriptions: dexAMETHasone [Decadron] 4 mg PO DAILY #5 tablet Oxycodone HCl/Acetaminophen [Percocet 5-325 mg Tablet] 1 each PO Q6H PRN #14 tablet PRN Reason: pain tiZANidine [Zanaflex] 4 mg PO Q8H PRN #20 tablet PRN Reason: Spasms Comments: Your CT scan, blood tests, urine test are without any obvious abnormalities. As such, that excludes reasonable amount of problems. Still consideration for musculoskeletal pains or nerve irritation. Heat and stretching and gentle range of motion for the low back and the hip periodically. Otherwise activity as tolerated. We will use a combination of anti-inflammatories, muscle relaxant, added pain medicine and see how this does over the next few days. I would anticipate improvement over the next several days and resolved over 4 to 6 days. Decadron steroid anti-inflammatory daily for the next several days. Tizanidine muscle relaxant every 6 hours for stiffness and spasms. To that add Tylenol every 4-6 hours for pain or oxycodone if needed for worse pain. You could use periodic Motrin for pain as well. Follow-up with your primary if not improved over the next several days. Discharge Date/Time: 01/18/21 23:30
[2021-01-18 19:20] LABS: ALBUMIN 4.2 g/dL (3.2-5.5); ALBUMIN/GLOBULIN RATIO 1.4 (1.0-2.2); BILIRUBIN,TOTAL 0.8 mg/dL (0.2-1.0); CALCIUM 8.8 mg/dL (8.5-10.3); CREATININE 0.8 mg/dL (0.4-1.0); TOTAL PROTEIN 7.2 g/dL (6.7-8.2)
[2021-01-18] MEDS ORDERED: HYDROmorphone 1 MG/ML CARPUJECT IVP STA ×2 (19:36→21:10)
[2021-01-18] MEDS ORDERED: KETOROLAC 30 MG/ML VIAL IVP STA (19:36)
[2021-01-18] MEDS ORDERED: IOVERSOL 320 100 ML VIAL IVP ONE ×2 (19:45→22:18)
[2021-01-18 19:52] LABS: BILIRUBIN,URINE NEGATIVE (NEGATIVE); GLUCOSE, URINE (UA) NEGATIVE (NEGATIVE); KETONES,URINE (UA) NEGATIVE (NEGATIVE); LEUKOCYTE ESTERASE, URINE NEGATIVE (NEGATIVE); NITRITE,URINE NEGATIVE (NEGATIVE); OCCULT BLOOD,URINE NEGATIVE (NEGATIVE); PROTEIN,URINE NEGATIVE (NEGATIVE); UROBILINOGEN,URINE 0.2 (NORMAL) E.U./dL (NORMAL)
[2021-01-18 19:55] LABS: CLARITY,URINE CLEAR (CLEAR); HCG UR QUAL NEGATIVE
[2021-01-18] MEDS ORDERED: ONDANSETRON 4 MG/2 ML VIAL IVP STA (20:24)
--- NOTE | 2021-01-18 20:49 | CT Report ---
PROCEDURE: Abdomen/Pelvis W INDICATIONS: left lower abd/back pain; hurts with movement CONTRAST: IV CONTRAST: Optiray 320 ml: 100 PO CONTRAST: *NO PO CONTRAST TECHNIQUE: After the administration of IV contrast, 5 mm thick sections acquired from the diaphragms to the symp hysis. 5 mm thick coronal and sagittal reformats were acquired. For radiation dose reduction, the f ollowing was used: automated exposure control, adjustment of mA and/or kV according to patient size. COMPARISON: None. FINDINGS: Image quality: Excellent. ABDOMEN: Lung bases: Lung bases are clear. Heart size is normal. Solid organs: Diffusely decreased hepatic density. Hepatomegaly. Spleen grossly unremarkable. Gallbla dder within normal limits Biliary system is non dilated. Pancreas enhances normally. No adrenal no dules. Kidneys demonstrate normal size and enhancement, without hydronephrosis. Peritoneum and bowel: Bowel loops demonstrate normal wall thickness and caliber. No free fluid or a ir. Normal appendix. Nodes and vessels: No retroperitoneal or mesenteric adenopathy by size criteria. Aorta and inferior vena cava are normal in size. Miscellaneous: No ventral hernias. PELVIS: Genitourinary: Urinary bladder decompressed. 45 mm diameter exophytic mass involves the posterior fun dus of the uterus. Miscellaneous: No inguinal hernias or adenopathy. Bones: No suspicious bony lesions. No vertebral body compression fractures. IMPRESSION: 1. No acute process. 2. Normal appendix. 3. Hepatic steatosis. 4. Uterine fibroid. Reviewed by: Nava Stone MD on 01/18/2021 8:47 PM PDT Approved by: Nava Stone MD on 01/18/2021 8:47 PM PDT Station ID: [id number]
[2021-01-18 21:08] VITALS: BP 111/70
[2021-01-18] MEDS ORDERED: DEXAMETHASONE 10 MG/ML VIAL IVP STA (21:10)
[2021-01-18] MEDS ORDERED: oxyCODONE/ACET 5/325 Prepack 4 PO STA (23:01)
== END 2021-01-18 23:30 | disposition home or self-care (01) ==
LOC: ED 18:42
DX: S33.6XXA Sprain of sacroiliac joint, initial encounter (principal); X58.XXXA Exposure to other specified factors, initial encounter; Z86.718 Personal history of other venous thrombosis and embolism; F17.200 Nicotine dependence, unspecified, uncomplicated
CPT/HCPCS: 36415; 74177; 80053; 81003; 81025; 83690; 85025; 96374; 96375; 99284; J1170; Q9967; 81001; 87086

== ENCOUNTER 2021-03-20 14:44 | Emergency (ER) | payer MEDICAID ==
[2021-03-20 15:34] VITALS: BP 148/76
[2021-03-20] MEDS ORDERED: predniSONE 20 MG TABLET PO STA (15:36)
--- NOTE | 2021-03-20 15:40 | ED Physician Documentation ---
History of Present Illness - Stated complaint Stated Complaint: SOA/WHEEZY - Chief complaint Chief Complaint: Heent - History obtained from History obtained from: Patient - History of Present Illness Timing: How many days ago (3) Pain level max: 4 Pain level now: 3 - Additonal information Additional information: Patient is a 45-year-old female with a history of asthma and immunocompromise state. She states that her is currently hospitalized with Covid. She states that she began to feel ill 3 to 4 days ago. She has not received her Covid vaccination. She states she has had increased difficulty breathing. Using her nebulizer at home but not currently on any steroids. No fevers. No chills. Has had rhinorrhea and congestion. 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 : None HEENT: None Psych: Depression Musculoskeletal: Fibromyalgia Derm: None - Past Surgical History Past Surgical History: Yes - Present Medications Home Medications: Ambulatory Orders Medication Instructions Recorded Confirmed Azithromycin [Zithromax] 250 mg PO DAILY #4 tablet 01/02/17 09/15/17 HYDROcod/ACETAM 5/325 [[place] 5/325] 1 - 2 ea PO Q6H PRN #15 tablet 01/02/17 09/15/17 guaiFENesin/CODEINE [Robitussin AC] 5 - 10 ml PO Q6H PRN #120 ml 01/02/17 09/15/17 Albuterol Sulfate [Proventil Hfa 1 - 2 puffs INH Q4H PRN #1 inhaler 08/27/17 09/15/17 Inhaler] Benzonatate [Tessalon] 100 mg PO TID #14 capsule 08/27/17 09/15/17 predniSONE [Prednisone] 40 mg PO DAILY 5 Days tablet 08/27/17 09/15/17 Ibuprofen [Motrin] 800 mg PO Q8H PRN #30 tablet 12/20/17 Sulfamethox/Trimeth 800/160 1 each PO BID #14 tablet 12/20/17 [Bactrim Ds 800/160] cephALEXin [Keflex] 500 mg PO Q6H #28 capsule 12/20/17 predniSONE [Prednisone] 20 mg PO DAILY #5 tablet 12/20/17 predniSONE [Prednisone] 40 mg PO DAILY 4 Days #8 tablet 04/11/18 Albuterol Sulfate 1.25 mg IH Q4HR PRN #30 units 04/01/19 Azithromycin [Zithromax] 250 mg PO DAILY #4 tablet 04/01/19 predniSONE [Deltasone] 10 mg PO ONCE #26 tablet 04/01/19 Cetirizine HCl/Pseudoephedrine 1 each PO BID PRN #30 tab.er.12h 04/15/19 [Zyrtec-D Tablet] Ibuprofen [Motrin] 800 mg PO Q8H PRN #30 tablet 04/15/19 predniSONE [Deltasone] 10 mg PO [id number] #42 tab 04/15/19 Ibuprofen [Motrin] 600 mg PO Q6H PRN #30 tab 10/07/19 Oxycodone HCl/Acetaminophen 1 each PO Q6H PRN #14 tablet 01/18/21 [Percocet 5-325 mg Tablet] dexAMETHasone [Decadron] 4 mg PO DAILY #5 tablet 01/18/21 tiZANidine [Zanaflex] 4 mg PO Q8H PRN #20 tablet 01/18/21 Benzonatate [Tessalon] 200 mg PO TID PRN #30 cap 03/20/21 predniSONE [Deltasone] 10 mg PO [id number] #42 tab 03/20/21 - Allergies Allergies/Adverse Reactions: Allergies Allergy/AdvReac Type Severity Reaction Status Date / Time cherries Allergy Severe Edema Uncoded 03/20/21 15:34 nuts Allergy Severe Edema Uncoded 03/20/21 15:34 - Social History Does the pt smoke?: Yes Smoking Status: Current every day smoker Does the pt drink ETOH?: Yes Does the pt have substance abuse?: No - Immunizations Immunizations are current?: Yes - POLST Patient has POLST: No PD ED PE NORMAL - Vitals Vital signs reviewed: Yes - General General: Alert and oriented X 3, No acute distress - HEENT HEENT: PERRL, Ears normal, Moist mucous membranes, Pharynx benign - Neck Neck: Supple, no meningeal sign - Cardiac Cardiac: RRR - Respiratory Respiratory: No respiratory distress, Other (Diminished breath sounds bilater ally) - Abdomen Abdomen: Soft, Non tender, Non distended - Derm Derm: Warm and dry - Extremities Extremities: No edema, No calf tenderness / cord - Neuro Neuro: Alert and oriented X 3 - Psych Psych: Normal mood, Normal affect Results - Vitals Vitals: Vital Signs - 24 hr 03/20/21 03/20/21 15:30 16:08 Temperature 37.1 C Heart Rate 110 H 105 H Respiratory 22 Rate Blood Pressure 148/76 H O2 Saturation 99 93 Oxygen O2 Source Room air PD MEDICAL DECISION MAKING - ED course Complexity details: reviewed results, re-evaluated patient, considered dif ferential, d/w patient ED course: Patient feels better after steroids and nebulizer scan performed. Counseled regarding Mab therapy. Patient is well-appearing, nontoxic. Afebrile. No indication for antibiotics at this time. No fevers. Patient counseled regarding signs and symptoms for which I believe and urgent re-evaluation would be necessary. Patient with good understanding of and agreement to plan and is comfortable going home at this time This document was made in part using voice recognition software. While efforts are made to proofread this document, sound alike and grammatical errors may occur. Departure - Departure Disposition: 01 Home, Self Care Clinical Impression: Viral URI Condition: Good Instructions: ED Viral Syndrome Follow-Up: your,doctor in 1 week [Other] Prescriptions: predniSONE [Deltasone] 10 mg PO [id number] #42 tab Benzonatate [Tessalon] 200 mg PO TID PRN #30 cap PRN Reason: Cough Comments: There is no indication for antibiotics at this time. Continue your nebulizer treat. If your Covid test is positive, you would qualify for monoclonal antibody therapy. You will need a confirmed PCR test which is what we have sent today. This can be done in the emergency department between the hours of 9 AM and 3 PM as the pharmacist must be here. It takes about 3 hours. I gave you a handout today with the risks and benefits of monoclonal antibody therapy. Please note that monoclonal antibody therapy may not be effective against the omicron variant of Covid. Your prescriptions were sent to [facility] in [place]. You have a Covid test pending. You need to self quarantine until the result is done and negative. The results should be done in 24-48 hours. We will call with a positive result, the fastest way to get a negative result for confirmation though is to go to the hospital website at [email or web address], click on the my [employer] tab and sign up for the patient portal. If any of your friends and/or family need to be tested, they can call the hospital at [phone] for an appointment to have their Covid test. Discharge Date/Time: 03/20/21 16:43
== END 2021-03-20 16:43 | disposition home or self-care (01) ==
LOC: ED 14:44
DX: U07.1 COVID-19 (principal); F17.200 Nicotine dependence, unspecified, uncomplicated
CPT/HCPCS: 87635; 99283; J7512

== ENCOUNTER 2021-04-03 22:43 | Emergency (ER) | payer MEDICAID ==
--- NOTE | 2021-04-04 01:56 | ED Physician Documentation ---
History of Present Illness - Stated complaint Stated Complaint: BACK PX,SOA - Chief complaint Chief Complaint: Resp - History obtained from History obtained from: Patient - Additonal information Additional information: 45yF with pmh asthma, SLE, superficial vein thrombosis but no hx DVT, p/w soa and R upper back pain worsening over past couple days. patient was dx with covid-19 03/20/21 and underwent a 10 day steroid taper. She did nebulizer treatments at home with some relief but then started to feel worse over the past couple days around the time she finished her steroids. patient is now out of nebs. denies fever/chills, hemoptysis. +chronic leg swelling, worsening recently and uneven, worse on R>L. Review of Systems Ten Systems: 10 systems reviewed and negative Constitutional: reports: Fatigue. 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 HEENT: None Psych: Depression Musculoskeletal: Fibromyalgia Derm: None - Past Surgical History Past Surgical History: Yes - Present Medications Home Medications: Ambulatory Orders Medication Instructions Recorded Confirmed Azithromycin [Zithromax] 250 mg PO DAILY #4 tablet 01/02/17 09/15/17 HYDROcod/ACETAM 5/325 [[place] 5/325] 1 - 2 ea PO Q6H PRN #15 tablet 01/02/17 09/15/17 guaiFENesin/CODEINE [Robitussin AC] 5 - 10 ml PO Q6H PRN #120 ml 01/02/17 09/15/17 Albuterol Sulfate [Proventil Hfa 1 - 2 puffs INH Q4H PRN #1 inhaler 08/27/17 09/15/17 Inhaler] Benzonatate [Tessalon] 100 mg PO TID #14 capsule 08/27/17 09/15/17 predniSONE [Prednisone] 40 mg PO DAILY 5 Days tablet 08/27/17 09/15/17 Ibuprofen [Motrin] 800 mg PO Q8H PRN #30 tablet 12/20/17 Sulfamethox/Trimeth 800/160 1 each PO BID #14 tablet 12/20/17 [Bactrim Ds 800/160] cephALEXin [Keflex] 500 mg PO Q6H #28 capsule 12/20/17 predniSONE [Prednisone] 20 mg PO DAILY #5 tablet 12/20/17 predniSONE [Prednisone] 40 mg PO DAILY 4 Days #8 tablet 04/11/18 Albuterol Sulfate 1.25 mg IH Q4HR PRN #30 units 04/01/19 Azithromycin [Zithromax] 250 mg PO DAILY #4 tablet 04/01/19 predniSONE [Deltasone] 10 mg PO ONCE #26 tablet 04/01/19 Cetirizine HCl/Pseudoephedrine 1 each PO BID PRN #30 tab.er.12h 04/15/19 [Zyrtec-D Tablet] Ibuprofen [Motrin] 800 mg PO Q8H PRN #30 tablet 04/15/19 predniSONE [Deltasone] 10 mg PO [id number] #42 tab 04/15/19 Ibuprofen [Motrin] 600 mg PO Q6H PRN #30 tab 10/07/19 Oxycodone HCl/Acetaminophen 1 each PO Q6H PRN #14 tablet 01/18/21 [Percocet 5-325 mg Tablet] dexAMETHasone [Decadron] 4 mg PO DAILY #5 tablet 01/18/21 tiZANidine [Zanaflex] 4 mg PO Q8H PRN #20 tablet 01/18/21 Benzonatate [Tessalon] 200 mg PO TID PRN #30 cap 03/20/21 predniSONE [Deltasone] 10 mg PO [id number] #42 tab 03/20/21 Albuterol 2.5 mg INH Q4H PRN #30 ml 04/04/21 - Allergies Allergies/Adverse Reactions: Allergies Allergy/AdvReac Type Severity Reaction Status Date / Time cherries Allergy Severe Edema Uncoded 04/03/21 22:58 nuts Allergy Severe Edema Uncoded 04/03/21 22:58 - Social History Does the pt smoke?: Yes Smoking Status: Current every day smoker Does the pt drink ETOH?: Yes Does the pt have substance abuse?: No - Immunizations Immunizations are current?: Yes - POLST Patient has POLST: No PD ED PE NORMAL - Vitals Vital signs reviewed: Yes - General General: Alert and oriented X 3, No acute distress, Well developed/nourished - HEENT HEENT: Atraumatic, PERRL, EOMI - Neck Neck: Supple, no meningeal sign - Cardiac Cardiac: RRR - Respiratory Respiratory: No respiratory distress, Clear bilaterally - Abdomen Abdomen: Non tender, Non distended - Derm Derm: Normal color, Warm and dry - Extremities Extremities: No deformity, No calf tenderness / cord, Other (1+ BL peripheral edema LE. ) - Neuro Neuro: Alert and oriented X 3, No motor deficit, No sensory deficit - Psych Psych: Normal mood, Normal affect Results - Vitals Vitals: Vital Signs - 24 hr 04/03/21 04/04/21 22:55 00:41 Temperature 36.3 C L Heart Rate 114 H 96 Respiratory 17 20 Rate Blood Pressure 144/77 H 126/80 O2 Saturation 94 99 Oxygen O2 Source Room air - Labs Labs: Laboratory Tests 04/04/21 04/04/21 02:31 02:31 WBC 12.0 H RBC 4.09 L Hgb 12.7 Hct 38.7 MCV 94.6 MCH 31.1 H MCHC 32.8 RDW 14.1 Plt Count 281 MPV 9.9 Neut # (Auto) 6.9 H Lymph # (Auto) 4.0 H [place] # (Auto) 0.7 Eos # (Auto) 0.2 Baso # (Auto) 0.1 Absolute Nucleated RBC 0.00 Nucleated RBC % 0.0 Sodium 138 Potassium 3.8 Chloride 100 L Carbon Dioxide 28 Anion Gap 10.0 BUN 13 Creatinine 0.7 Estimated GFR (MDRD) 91 Glucose 192 H Calcium 8.9 Total Bilirubin 0.6 AST 36 ALT 65 H Alkaline Phosphatase 56 Total Protein 6.6 L Albumin 3.7 Globulin 2.9 Albumin/Globulin Ratio 1.3 Lipase 35 PD MEDICAL DECISION MAKING - ED course ED course: discussed the possibility of blood clot including risk of PE with the patient who agreed to stay for CTA chest which was negative for PE. Does show BL ground glass opacities c/w covid pneumonia. plan to f/u with pmd. nebs rx refilled. General return precautions given. Departure - Departure Disposition: 01 Home, Self Care Clinical Impression: Shortness of breath, Cough, Back pain Condition: Stable Instructions: Techniques Cough Airway Clear Prescriptions: Albuterol 2.5 mg INH Q4H PRN #30 ml PRN Reason: Wheezing Comments: You were seen in the emergency department for evaluation of cough, back pain, and shortness of breath. Your CT showed no pulmonary embolism but does show some residual lung infection that is likely related to your covid infection. Please return to the emergency department if you develop fever (temp>100.4 by oral or armpit thermometer), have new or worsening symptoms or other concerns. Follow up with your primary doctor.
[2021-04-04] MEDS ORDERED: KETOROLAC 30 MG/ML VIAL IM STA (02:06)
[2021-04-04] MEDS ORDERED: SODIUM CHLORIDE 0.9% 500 ML IV STA (02:20)
[2021-04-04] MEDS ORDERED: iohexoL-300 100 ML VIAL ONE (02:42)
[2021-04-04 02:44] LABS: BASOPHILS # (AUTO) 0.1 10^3/uL (0.0-0.1); BASOPHILS % (AUTO) 0.6 %; EOSINOPHILS # (AUTO) 0.2 10^3/uL (0.0-0.7); EOSINOPHILS % (AUTO) 1.8 %; HCT - HEMATOCRIT 38.7 % (37.0-47.0); HGB - HEMOGLOBIN 12.7 g/dL (12.0-16.0); LYMPHOCYTES % (AUTO) 33.5 %; MEAN CORPUSCULAR HEMOGLOBIN 31.1 pg (27.0-31.0); MEAN CORPUSCULAR HGB CONC 32.8 g/dL (32.0-36.0); MEAN CORPUSCULAR VOLUME 94.6 fL (81.0-99.0); MEAN PLATELET VOLUME 9.9 fL (7.9-10.8); MONOCYTES # (AUTO) 0.7 10^3/uL (0.0-1.0); MONOCYTES % (AUTO) 6.1 %; NEUTROPHILS # (AUTO) 6.9 10^3/uL (1.5-6.6); NEUTROPHILS % (AUTO) 57.3 %; PLT - PLATELET COUNT 281 10^3/uL (130-450); RED BLOOD COUNT 4.09 10^6/uL (4.20-5.40); RED CELL DISTRIBUTION WIDTH 14.1 % (12.0-15.0)
[2021-04-04 02:54] LABS: ALBUMIN 3.7 g/dL (3.2-5.5); ALBUMIN/GLOBULIN RATIO 1.3 (1.0-2.2); BILIRUBIN,TOTAL 0.6 mg/dL (0.2-1.0); CALCIUM 8.9 mg/dL (8.5-10.3); CREATININE 0.7 mg/dL (0.4-1.0); POTASSIUM 3.8 mmol/L (3.5-5.0); TOTAL PROTEIN 6.6 g/dL (6.7-8.2)
[2021-04-04] MEDS ORDERED: iohexoL-300 100 ML VIAL IVP ONE (03:34)
[2021-04-04 04:53] VITALS: BP 130/75
--- NOTE | 2021-04-04 09:30 | XRAY Report ---
PROCEDURE: Chest 1 View X-Ray INDICATIONS: covid-19, soa TECHNIQUE: One view of the chest was acquired. COMPARISON: Chest x-rays FINDINGS: Surgical changes and devices: None. Lungs and pleura: No pleural effusions or pneumothorax. Lungs are clear. Mediastinum: Mediastinal contours appear normal. Heart size is normal. Bones and chest wall: No suspicious bony lesions. Overlying soft tissues appear unremarkable. IMPRESSION: No acute pulmonary process. The above findings are concordant with preliminary report. Reviewed by: Dianne Richardson MD on 04/04/2021 9:29 AM PST Approved by: Dianne Richardson MD on 04/04/2021 9:29 AM [facility] Station ID: [id number]
--- NOTE | 2021-04-04 09:33 | CT Report ---
PROCEDURE: ANGIO CHEST W/WO INDICATIONS: pleurisy, cough, leg swelling, hx blood clots CONTRAST: IV CONTRAST: Isovue 300 ml: 100 PO CONTRAST: *NO PO CONTRAST TECHNIQUE: After the administration of intravenous contrast, 2 mm axial images were acquired from the pulmonary apices to the posterior costophrenic angles during the arterial phase. In addition, 1 mm lung kernel and 5 mm soft tissue kernel reconstructions were performed. 3-dimensional coronal oblique maximum int ensity projection (MIP) reformats, 8 mm axial MIP, and 5 mm coronal and sagittal MPR reformats were t hen performed through the thorax. For radiation dose reduction, the following was used: automated exp osure control, adjustment of mA and/or kV according to patient size. COMPARISON: Chest x-ray 04/04/2021, CT chest 02/27/2012 FINDINGS: Image quality: Excellent. Pulmonary arteries: Pulmonary arteries are normal in size, and demonstrate no intraluminal filling d efects to suggest central pulmonary embolism. Lungs and pleura: There is a very mild appearance of groundglass opacities within the lungs bilateral ly. No pleural effusions or pneumothorax. Central and peripheral airways are patent. Mediastinum: Heart size is normal, without pericardial effusion. Mildly enlarged mediastinal hilar l ymph nodes. Thoracic aorta is normal in caliber and enhancement. Esophagus is normal in caliber, wit hout hiatal hernia. Bones and chest wall: No suspicious bony lesions. Ribs and thoracic spine appear intact throughout. No axillary or supraclavicular adenopathy. The thyroid is normal in size and there are no incident al findings. Abdomen: Hepatomegaly with steatosis. Otherwise, visualized upper abdominal solid organs appear norm al in the early arterial phase of enhancement. IMPRESSION: 1. Faint groundglass appearance of opacities within the lungs bilaterally suggestive of pneumonia. Mi ldly prominent lymph nodes are present suggestive BE reactive in nature. 2. No pulmonary embolism. The above findings are concordant with preliminary report. CLINICAL RECOMMENDATION STATEMENTS: In patients <35 years with an ITN detected on CT, MRI, or extrathyroidal ultrasound, the Committee re commends further evaluation with dedicated thyroid ultrasound if the nodule is "e1 cm and has no susp icious imaging features, and if the patient has normal life expectancy. In patients "e35 years with an ITN detected on CT, MRI, or extrathyroidal ultrasound, the Committee r ecommends further evaluation with dedicated thyroid ultrasound if the nodule is "e1.5 cm and has no s uspicious imaging features, and if the patient has normal life expectancy. (ACR, 2014) Reviewed by: Dianne Richardson MD on 04/04/2021 9:32 AM [facility] Approved by: Dianne Richardson MD on 04/04/2021 9:32 AM [facility] Station ID: [id number]
== END 2021-04-04 05:31 | disposition home or self-care (01) ==
LOC: ED 22:43
DX: R06.02 Shortness of breath (principal); M54.6 Pain in thoracic spine; R53.83 Other fatigue; F17.200 Nicotine dependence, unspecified, uncomplicated
CPT/HCPCS: 36415; 71045; 71275; 80053; 83690; 85025; 96372; 99284; Q9967

== ENCOUNTER 2021-05-09 12:05 | Outpatient (CLI) | payer MEDICAID ==
[2021-05-09 18:11] LABS: BASOPHILS # (AUTO) 0.1 10^3/uL (0.0-0.1); EOSINOPHILS # (AUTO) 0.3 10^3/uL (0.0-0.7); EOSINOPHILS % (AUTO) 4.6 %; HCT - HEMATOCRIT 42.2 % (37.0-47.0); HGB - HEMOGLOBIN 13.5 g/dL (12.0-16.0); LYMPHOCYTES # (AUTO) 2.4 10^3/uL (1.5-3.5); LYMPHOCYTES % (AUTO) 40.9 %; MEAN CORPUSCULAR HEMOGLOBIN 30.6 pg (27.0-31.0); MEAN CORPUSCULAR VOLUME 95.7 fL (81.0-99.0); MEAN PLATELET VOLUME 10.5 fL (7.9-10.8); MONOCYTES # (AUTO) 0.4 10^3/uL (0.0-1.0); MONOCYTES % (AUTO) 6.7 %; NEUTROPHILS # (AUTO) 2.7 10^3/uL (1.5-6.6); NEUTROPHILS % (AUTO) 46.5 %; PLT - PLATELET COUNT 279 10^3/uL (130-450); RED BLOOD COUNT 4.41 10^6/uL (4.20-5.40); RED CELL DISTRIBUTION WIDTH 13.2 % (12.0-15.0); WHITE BLOOD COUNT 5.8 x10^3/uL (4.8-10.8)
[2021-05-09 18:17] LABS: ALBUMIN 4.3 g/dL (3.2-5.5); ALBUMIN/GLOBULIN RATIO 1.4 (1.0-2.2); ALKALINE PHOSPHATASE 55 IU/L (42-121); ALT ALANINE AMINOTRANSFERASE 66 IU/L (10-60); AST ASPARTATE AMINOTRANSFERASE 36 IU/L (10-42); BILIRUBIN,TOTAL 0.9 mg/dL (0.2-1.0); BUN - BLOOD UREA NITROGEN 8 mg/dL (6-20); CALCIUM 9.2 mg/dL (8.5-10.3); CARBON DIOXIDE - CO2 26 mmol/L (21-32); CHLORIDE 102 mmol/L (101-111); CHOL/HDL RATIO 6.2 (<4.4); CHOLESTEROL 217 mg/dL; CREATININE 0.7 mg/dL (0.4-1.0); GFR - MDRD 91 (>89); GLUCOSE 186 mg/dL (70-100); HDL CHOLESTEROL 35 mg/dL; LDL CHOLESTEROL,CALCULATED 150 mg/dL; LDL/HDL RATIO 4.3 (<4.4); POTASSIUM 4.5 mmol/L (3.5-5.0); SODIUM 135 mmol/L (135-145); THYROID STIMULATING HORMONE 1.59 uIU/mL (0.34-5.60); TOTAL PROTEIN 7.3 g/dL (6.7-8.2); TRIGLYCERIDES 159 mg/dL; VLDL CHOLESTEROL 32 mg/dL
== END 2021-05-09 12:06 | disposition home or self-care (01) ==
LOC: LAB.N 12:05
PROVIDERS: ATTEND Physician Assistant Medical
DX: Z00.00 Encounter for general adult medical examination without abnormal findings (principal); R60.0 Localized edema; L50.9 Urticaria, unspecified
CPT/HCPCS: 36415; 80053; 80061; 83721; 84443; 85025

== ENCOUNTER 2021-05-09 12:10 | Outpatient (CLI) | payer MEDICAID ==
--- NOTE | 2021-05-09 13:13 | XRAY Report ---
PROCEDURE: Lumbar Spine 2 View INDICATIONS: CHRONIC LOW BACK PX TECHNIQUE: 3 views of the lumbar spine were acquired. COMPARISON: None. FINDINGS: L-SPINE: No acute displaced fracture or malalignment. The vertebral body heights are maintained. The disc space heights are maintained. Facet arthrosis at L5-S1. The sacroiliac joints appear patent. SOFT TISSUES: No focal abnormality. IMPRESSION: 1.No acute osseous abnormality of the lumbar spine. Reviewed by: Jeovanny Escalante MD on 05/09/2021 1:12 PM [facility] Approved by: Jeovanny Escalante MD on 05/09/2021 1:12 PM [facility] Station ID: [id number]
== END 2021-05-09 12:11 | disposition home or self-care (01) ==
LOC: DI.N 12:10
PROVIDERS: ATTEND Physician Assistant Medical
DX: M54.50 Low back pain, unspecified (principal); G89.29 Other chronic pain; Z00.00 Encounter for general adult medical examination without abnormal findings; R60.0 Localized edema; L50.9 Urticaria, unspecified
CPT/HCPCS: 36415; 80053; 80061; 83721; 84443; 85025

== ENCOUNTER 2021-05-19 09:53 | Outpatient (CLI) | payer MEDICAID ==
[2021-05-19 14:34] LABS: ESTIMATED AVERAGE GLUCOSE 126 mg/dL (70-100)
== END 2021-05-19 09:54 | disposition home or self-care (01) ==
LOC: LAB.N 09:53
PROVIDERS: ATTEND Physician Assistant Medical
DX: R73.9 Hyperglycemia, unspecified (principal)
CPT/HCPCS: 36415; 83036

== ENCOUNTER 2022-01-29 17:29 | Outpatient (CLI) | payer MEDICAID ==
--- NOTE | 2022-01-30 14:04 | Ultrasound Report ---
PROCEDURE: Ankle Brachial Index INDICATIONS: COLD FEET TECHNIQUE: Ankle-brachial indices were obtained bilaterally and recorded. COMPARISONS: None. FINDINGS: Right ankle brachial index (FARIHA): 1.19 LOGISTICS LEAD peak systolic velocity: 53.3 cm/s with triphasic wave form. DP artery peak systolic velocity: 58.7 cm/s with biphasic wave form. Left ankle brachial index (FARIHA): 1.13 LOGISTICS LEAD peak systolic velocity: 69.4 cm/s with triphasic wave form. DP artery peak systolic velocity: 50.7 cm/s with biphasic wave form. Healing potential: Ankle pressures >55 mm Hg in non-diabetics and >80 mm Hg in diabetics are likely to achieve primary h ealing of ischemic foot ulcers. Toe pressures >30 mm Hg are likely to achieve primary healing of ischemic foot ulcers, toe or transme tatarsal amputations. IMPRESSION: Normal ankle brachial indices bilaterally. Reviewed by: Mahesh Lombardo MD on 01/30/2022 2:03 PM PST Approved by: Mahesh Lombardo MD on 01/30/2022 2:03 PM PST Station ID: [id number]
== END 2022-01-29 17:30 | disposition home or self-care (01) ==
LOC: DI 17:29
PROVIDERS: ATTEND Physician Assistant Medical
DX: R29.898 Other symptoms and signs involving the musculoskeletal system (principal)
CPT/HCPCS: 93922

== ENCOUNTER 2022-09-29 20:29 | Emergency (ER) | payer OTHER, MEDICAID ==
[2022-09-29 20:49] VITALS: BP 150/82
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
--- NOTE | 2022-09-29 22:13 | CT Report ---
PROCEDURE: HEAD WO INDICATIONS: head inj TECHNIQUE: Noncontrast 4.5 mm thick angled axial sections acquired from the foramen magnum to the vertex. For r adiation dose reduction, the following was used: automated exposure control, adjustment of mA and/or kV according to patient size. COMPARISON: None. FINDINGS: Image quality: There is motion artifact limiting evaluation. CSF spaces: Basal cisterns are patent. No extra-axial fluid collections. Ventricles are normal in size and shape. Brain: No definite intracranial hemorrhage, mass, or mass effect. Knott-white matter interface appea rs preserved. Skull and face: Calvarium and visualized facial bones are intact, without suspicious lesions. Sinuses: Visualized sinuses and mastoids are clear. IMPRESSION: 1. No definite acute intracranial abnormality. Reviewed by: Gennaro Stevens MD on 09/29/2022 10:12 PM PDT Approved by: Gennaro Stevens MD on 09/29/2022 10:12 PM PDT Station ID: [id number]
[2022-09-29] MEDS: ACETAMINOPHEN 500 MG TABLET PO STA (22:23)
--- NOTE | 2022-09-29 22:29 | XRAY Report ---
PROCEDURE: Chest 1 View X-Ray INDICATIONS: chest wall inj TECHNIQUE: One view of the chest was acquired. COMPARISON: None. FINDINGS: Surgical changes and devices: None. Lungs and pleura: No pleural effusions or pneumothorax. Lungs are clear. Mediastinum: Mediastinal contours appear normal. Heart size is normal. Bones and chest wall: No displaced fracture identified. No suspicious bony lesions. Overlying soft tissues appear unremarkable. IMPRESSION: 1. No definite acute traumatic abnormality. Reviewed by: Gennaro Stevens MD on 09/29/2022 10:27 PM PDT Approved by: Gennaro Stevens MD on 09/29/2022 10:27 PM PDT Station ID: [id number]
--- NOTE | 2022-09-29 22:30 | XRAY Report ---
PROCEDURE: Shoulder 3 View LT INDICATIONS: shoulder inj TECHNIQUE: 3 views of the shoulder were acquired. COMPARISON: None. FINDINGS: Bones: No fractures or dislocations. No suspicious bony lesions. Visualized ribs appear intact. Soft tissues: No suspicious soft tissue calcifications. IMPRESSION: 1. No fracture or dislocation. Reviewed by: Gennaro Stevens MD on 09/29/2022 10:28 PM PDT Approved by: Gennaro Stevens MD on 09/29/2022 10:28 PM PDT Station ID: [id number]
--- NOTE | 2022-09-29 23:21 | CT Report ---
PROCEDURE: LUMBAR SPINE WO INDICATIONS: back inj TECHNIQUE: Noncontrast 3 mm thick sections acquired from the T12 level to the sacrum. Sagittal and coronal refo rmats were constructed. For radiation dose reduction, the following was used: automated exposure co ntrol, adjustment of mA and/or kV according to patient size. COMPARISON: Lumbar spine x-ray 05/09/2021. FINDINGS: Image quality: Excellent. Bones: There is normal bony alignment. No fractures or subluxation. Specifically, no acute vertebra l body compression fractures. No pars defects. No suspicious lytic or blastic bony lesions. The disc spaces appear preserved. There is mild facet arthropathy at L5-S1. Central spinal caliber is of normal overall caliber. There is mild spinal canal narrowing at L4-5. There is mild right neur oforaminal narrowing at L3-4, L4-5, and L5-S1. Mild left neuroforaminal narrowing also demonstrated a t L4-5 and L5-S1. Soft tissues: No retroperitoneal masses or hematomas. Visualized aorta is normal in caliber. IMPRESSION: 1. No acute fracture or subluxation. Reviewed by: Gennaro Stevens MD on 09/29/2022 11:20 PM PDT Approved by: Gennaro Stevens MD on 09/29/2022 11:20 PM PDT Station ID: [id number]
== END 2022-09-29 22:36 | disposition home or self-care (01) ==
LOC: ED 20:29
DX: S09.90XA Unspecified injury of head, initial encounter (principal); S39.012A Strain of muscle, fascia and tendon of lower back, initial encounter; S40.012A Contusion of left shoulder, initial encounter; S20.219A Contusion of unspecified front wall of thorax, initial encounter; V43.52XA Car driver injured in collision with other type car in traffic accident, initial encounter; Y92.410 Unspecified street and highway as the place of occurrence of the external cause; Z79.899 Other long term (current) drug therapy; F17.200 Nicotine dependence, unspecified, uncomplicated
CPT/HCPCS: 70450; 71045; 72131; 73030; 99283; 99284; A9270

== ENCOUNTER 2023-07-25 20:52 | Emergency (ER) | payer MEDICAID ==
--- NOTE | 2023-07-25 23:20 | ED Physician Documentation ---
History of Present Illness - Stated complaint Stated Complaint: DIZZY - Chief complaint Chief Complaint: Neuro - History obtained from History obtained from: Patient - Additonal information Additional information: 47yF with pmh dvt, asthma, SLE, fibromyalgia, depression, p/w multiple medical symptoms. patient was dizzy on and off yesterday and then woke this morning stiff. she felt like her body was on fire intermittently and lost balance multiple times. also felt her heart racing. she has intermittent sensation of room spinning a/w nausea and vomiting. 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: None : None HEENT: None Psych: Depression Musculoskeletal: Fibromyalgia Derm: None - Past Surgical History Past Surgical History: Yes - Present Medications Home Medications: Ambulatory Orders Medication Instructions Recorded Confirmed Azithromycin [Zithromax] 250 mg PO DAILY #4 tablet 01/02/17 09/15/17 HYDROcod/ACETAM 5/325 [[place] 5/325] 1 - 2 ea PO Q6H PRN #15 tablet 01/02/17 09/15/17 guaiFENesin/CODEINE [Robitussin AC] 5 - 10 ml PO Q6H PRN #120 ml 01/02/17 09/15/17 Albuterol Sulfate [Proventil Hfa 1 - 2 puffs INH Q4H PRN #1 inhaler 08/27/17 09/15/17 Inhaler] Benzonatate [Tessalon] 100 mg PO TID #14 capsule 08/27/17 09/15/17 predniSONE [Prednisone] 40 mg PO DAILY 5 Days tablet 08/27/17 09/15/17 Ibuprofen [Motrin] 800 mg PO Q8H PRN #30 tablet 12/20/17 Sulfamethox/Trimeth 800/160 1 each PO BID #14 tablet 12/20/17 [Bactrim Ds 800/160] cephALEXin [Keflex] 500 mg PO Q6H #28 capsule 12/20/17 predniSONE [Prednisone] 20 mg PO DAILY #5 tablet 12/20/17 predniSONE [Prednisone] 40 mg PO DAILY 4 Days #8 tablet 04/11/18 Albuterol Sulfate 1.25 mg IH Q4HR PRN #30 units 04/01/19 Azithromycin [Zithromax] 250 mg PO DAILY #4 tablet 04/01/19 predniSONE [Deltasone] 10 mg PO ONCE #26 tablet 04/01/19 Cetirizine HCl/Pseudoephedrine 1 each PO BID PRN #30 tab.er.12h 04/15/19 [Zyrtec-D Tablet] Ibuprofen [Motrin] 800 mg PO Q8H PRN #30 tablet 04/15/19 predniSONE [Deltasone] 10 mg PO [id number] #42 tab 04/15/19 Ibuprofen [Motrin] 600 mg PO Q6H PRN #30 tab 10/07/19 Oxycodone HCl/Acetaminophen 1 each PO Q6H PRN #14 tablet 01/18/21 [Percocet 5-325 mg Tablet] dexAMETHasone [Decadron] 4 mg PO DAILY #5 tablet 01/18/21 tiZANidine [Zanaflex] 4 mg PO Q8H PRN #20 tablet 01/18/21 Benzonatate [Tessalon] 200 mg PO TID PRN #30 cap 03/20/21 predniSONE [Deltasone] 10 mg PO [id number] #42 tab 03/20/21 Albuterol 2.5 mg INH Q4H PRN #30 ml 04/04/21 Meclizine [Antivert] 12.5 mg PO Q6H PRN #30 tablet 07/26/23 - Allergies Allergies/Adverse Reactions: Allergies Allergy/AdvReac Type Severity Reaction Status Date / Time metoclopramide [From Reglan] AdvReac Itching Verified 07/25/23 23:49 cherries Allergy Severe Edema Uncoded 07/25/23 20:54 nuts Allergy Severe Edema Uncoded 07/25/23 20:54 - Social History Does the pt smoke?: Yes Smoking Status: Current every day smoker Does the pt drink ETOH?: No Does the pt have substance abuse?: No - Immunizations Immunizations are current?: Yes - POLST Patient has POLST: No PD ED PE NORMAL - Vitals Vital signs reviewed: Yes - General General: Alert and oriented X 3, No acute distress, Well developed/nourished - HEENT HEENT: Atraumatic, PERRL, EOMI, Moist mucous membranes, Pharynx benign, Other (HINTS exam negative) - Neck Neck: Supple, no meningeal sign - Cardiac Cardiac: RRR - Respiratory Respiratory: No respiratory distress, Clear bilaterally - Abdomen Abdomen: Non tender, Non distended - Derm Derm: Normal color, Warm and dry - Neuro Neuro: Alert and oriented X 3, route sales manager 2-12 intact, No motor deficit, No sensory deficit, Normal speech Eye Opening: Spontaneous Motor: Obeys Commands Verbal: Oriented GCS Score: 15 Results - Vitals Vitals: Vital Signs - 24 hr 07/25/23 07/25/23 07/25/23 20:54 22:59 23:46 Temperature 36.8 C Heart Rate 90 78 91 Respiratory 16 18 18 Rate Blood Pressure 147/76 H 156/68 H 114/74 O2 Saturation 99 98 98 07/26/23 07/26/23 01:00 01:32 Temperature Heart Rate 80 65 Respiratory 18 17 Rate Blood Pressure 140/87 H O2 Saturation 95 98 Oxygen O2 Source Room air - Labs Labs: Laboratory Tests 07/25/23 07/25/23 23:26 23:26 WBC 10.1 RBC 4.59 Hgb 13.8 Hct 41.9 MCV 91.3 MCH 30.1 MCHC 32.9 RDW 13.2 Plt Count 272 MPV 9.3 Neut # (Auto) 6.7 H Lymph # (Auto) 2.7 [place] # (Auto) 0.4 Eos # (Auto) 0.2 Baso # (Auto) 0.1 Absolute Nucleated RBC 0.00 Nucleated RBC % 0.0 Sodium 138 Potassium 4.1 Chloride 104 Carbon Dioxide 26 Anion Gap 8.0 BUN 13 Creatinine 0.7 Estimated GFR (MDRD) 90 Glucose 145 H Calcium 9.7 Total Bilirubin 0.6 AST 16 ALT 25 Alkaline Phosphatase 66 Total Protein 7.3 Albumin 4.3 Globulin 3.0 Albumin/Globulin Ratio 1.4 Lipase 18 PD Medical Decision Making - ED course ED course: 47yF p/w multiple medical symptoms including vertigo, nausea, sensation of burning throughout the body, and palpitations. Symptoms improved s/p droperidol, reglan, and IV benadryl and her labwork was benign. Neuro exam was normal therefore central cause for her dizziness is unlikely. return precautions given. plan to f/u with pcp. Departure - Departure Disposition: 01 Home, Self Care Clinical Impression: Vertigo Condition: Stable Instructions: ED Vertigo Unspecified Prescriptions: Meclizine [Antivert] 12.5 mg PO Q6H PRN #30 tablet PRN Reason: Dizziness Comments: You were seen in the emergency department for vertigo. Medication for vertigo sent to [facility] pharmacy. Please follow-up with your primary care provider and shirt ironer and return to the emergency department if you have any new or worsening symptoms or other concerns. Forms: PCP List Discharge Date/Time: 07/26/23 01:32
[2023-07-25 23:30] LABS: BASOPHILS # (AUTO) 0.1 10^3/uL (0.0-0.1); BASOPHILS % (AUTO) 0.8 %; EOSINOPHILS # (AUTO) 0.2 10^3/uL (0.0-0.7); EOSINOPHILS % (AUTO) 1.6 %; HCT - HEMATOCRIT 41.9 % (37.0-47.0); HGB - HEMOGLOBIN 13.8 g/dL (12.0-16.0); LYMPHOCYTES # (AUTO) 2.7 10^3/uL (1.5-3.5); LYMPHOCYTES % (AUTO) 26.9 %; MEAN CORPUSCULAR HEMOGLOBIN 30.1 pg (27.0-31.0); MEAN CORPUSCULAR HGB CONC 32.9 g/dL (32.0-36.0); MEAN CORPUSCULAR VOLUME 91.3 fL (81.0-99.0); MEAN PLATELET VOLUME 9.3 fL (7.9-10.8); MONOCYTES # (AUTO) 0.4 10^3/uL (0.0-1.0); MONOCYTES % (AUTO) 4.3 %; NEUTROPHILS # (AUTO) 6.7 10^3/uL (1.5-6.6); NEUTROPHILS % (AUTO) 66.2 %; PLT - PLATELET COUNT 272 10^3/uL (130-450); RED BLOOD COUNT 4.59 10^6/uL (4.20-5.40); RED CELL DISTRIBUTION WIDTH 13.2 % (12.0-15.0); WHITE BLOOD COUNT 10.1 x10^3/uL (4.8-10.8)
[2023-07-25] MEDS: DROPERIDOL 5 MG/2 ML VIAL IVP STA (23:35)
[2023-07-25] MEDS: METOCLOPRAMIDE 10 MG/2 ML VIAL IVP STA (23:35)
[2023-07-25] MEDS: SODIUM CHLORIDE 0.9% 1,000 ML IV STA (23:35)
[2023-07-25] MEDS: diphenhydrAMINE INJ 50 MG/ML VIAL IVP STA (23:37)
[2023-07-25 23:52] LABS: ALBUMIN 4.3 g/dL (3.2-5.5); ALBUMIN/GLOBULIN RATIO 1.4 (1.0-2.2); BILIRUBIN,TOTAL 0.6 mg/dL (0.2-1.0); CALCIUM 9.7 mg/dL (8.5-10.3); CREATININE 0.7 mg/dL (0.6-1.3); POTASSIUM 4.1 mmol/L (3.5-4.5); TOTAL PROTEIN 7.3 g/dL (6.4-8.9)
[2023-07-26] MEDS: MECLIZINE 12.5 MG TABLET PO STA (01:16)
[2023-07-26 01:38] VITALS: BP 140/87; O2SAT 98
== END 2023-07-26 01:32 | disposition home or self-care (01) ==
LOC: ED 20:52
DX: R42 Dizziness and giddiness (principal); F17.200 Nicotine dependence, unspecified, uncomplicated
CPT/HCPCS: 36415; 80053; 83690; 85025; 96374; 96375; 99283; A9270; J1200; J2765

== ENCOUNTER 2023-10-10 09:04 | Outpatient (CLI) | payer MEDICAID, OTHER | END 2023-10-10 23:59 | disposition critical access hospital (66) | LOC: EMS 09:04 | DX: M79.622 Pain in left upper arm (principal); R20.0 Anesthesia of skin; R07.9 Chest pain, unspecified | CPT/HCPCS: A0425; A0427; A0999 ==

== ENCOUNTER 2023-10-10 09:26 | Emergency (ER) | payer MEDICAID ==
[2023-10-10 09:48] LABS: BASOPHILS # (AUTO) 0.1 10^3/uL (0.0-0.1); BASOPHILS % (AUTO) 0.9 %; EOSINOPHILS # (AUTO) 0.4 10^3/uL (0.0-0.7); EOSINOPHILS % (AUTO) 5.1 %; LYMPHOCYTES # (AUTO) 2.1 10^3/uL (1.5-3.5); LYMPHOCYTES % (AUTO) 28.6 %; MEAN CORPUSCULAR HEMOGLOBIN 30.6 pg (27.0-31.0); MEAN CORPUSCULAR HGB CONC 33.3 g/dL (32.0-36.0); MEAN CORPUSCULAR VOLUME 91.8 fL (81.0-99.0); MEAN PLATELET VOLUME 9.9 fL (7.9-10.8); MONOCYTES # (AUTO) 0.4 10^3/uL (0.0-1.0); MONOCYTES % (AUTO) 5.4 %; NEUTROPHILS # (AUTO) 4.4 10^3/uL (1.5-6.6); NEUTROPHILS % (AUTO) 59.7 %; PLT - PLATELET COUNT 249 10^3/uL (130-450); RED BLOOD COUNT 4.25 10^6/uL (4.20-5.40); RED CELL DISTRIBUTION WIDTH 13.4 % (12.0-15.0); WHITE BLOOD COUNT 7.4 x10^3/uL (4.8-10.8)
[2023-10-10 10:02] LABS: ALBUMIN/GLOBULIN RATIO 1.4 (1.0-2.2); ALKALINE PHOSPHATASE 51 IU/L (42-121); ALT ALANINE AMINOTRANSFERASE 36 IU/L (10-60); AST ASPARTATE AMINOTRANSFERASE 20 IU/L (10-42); BILIRUBIN,TOTAL 0.6 mg/dL (0.2-1.0); BUN - BLOOD UREA NITROGEN 8 mg/dL (6-20); CALCIUM 9.3 mg/dL (8.5-10.3); CARBON DIOXIDE - CO2 25 mmol/L (21-32); CHLORIDE 105 mmol/L (101-111); CREATININE 0.7 mg/dL (0.6-1.3); GFR - MDRD 90 (>89); GLUCOSE 192 mg/dL (74-104); LIPASE 11 U/L (11-82); POTASSIUM 3.9 mmol/L (3.5-4.5); SODIUM 136 mmol/L (135-145); TOTAL PROTEIN 6.8 g/dL (6.4-8.9)
[2023-10-10 10:07] LABS: TROPONIN I HIGH SENSITIVITY < 2.3 ng/L (2.3-14.8)
--- NOTE | 2023-10-10 10:13 | XRAY Report ---
PROCEDURE: Chest 1V INDICATIONS: Chest pain TECHNIQUE: One view of the chest was acquired. COMPARISON: 09/29/2022. FINDINGS: Surgical changes and devices: None. Lungs and pleura: No pleural effusions or pneumothorax. Lungs are clear. Mediastinum: Mediastinal contours appear normal. Heart size is normal. Bones and chest wall: No suspicious bony lesions. Overlying soft tissues appear unremarkable. IMPRESSION: No acute cardiopulmonary process. Reviewed by: Lev Hernandez MD on 10/10/2023 10:11 AM PDT Approved by: Lev Hernandez MD on 10/10/2023 10:11 AM PDT Station ID: [id number]
--- NOTE | 2023-10-10 10:57 | ED Physician Documentation ---
PD HPI CHEST PAIN - Stated complaint Stated Complaint: CP - Chief complaint Chief Complaint: Cardiac - History obtained from History obtained from: Patient, EMS - Additional information Additional information: The pt comes to the ED with CC of sharp L shoulder pain upon awakening. She then noticed it seemed to migrate to her L superior chest. No SOB. No change with movement. No h/o neck or shoulder problems. She c/o some numbness and tingling going down her arm at the same time. No cardiac history. 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: None : None HEENT: None Psych: Depression Musculoskeletal: Fibromyalgia Derm: None - Past Surgical History Past Surgical History: Yes - Present Medications Home Medications: Ambulatory Orders Medication Instructions Recorded Confirmed Ibuprofen [Motrin] 600 mg PO Q6H PRN #30 tab 10/07/19 10/10/23 Albuterol 2.5 mg INH Q4H PRN #30 ml 04/04/21 10/10/23 Naproxen [EC-Naprosyn] 375 mg PO ONCE PRN 10/10/23 10/10/23 traZODone [Desyrel] 75 mg PO HS 10/10/23 10/10/23 - Allergies Allergies/Adverse Reactions: Allergies Allergy/AdvReac Type Severity Reaction Status Date / Time metoclopramide [From Reglan] AdvReac Itching Verified 10/10/23 09:29 cherries Allergy Severe Edema Uncoded 10/10/23 09:29 nuts Allergy Severe Edema Uncoded 10/10/23 09:29 breathing treatments Allergy Unknown Unknown Uncoded 10/10/23 09:29 - Social History Does the pt smoke?: Yes Smoking Status: Current every day smoker Does the pt drink ETOH?: No Does the pt have substance abuse?: No - Immunizations Immunizations are current?: Yes - POLST Patient has POLST: No PD ED PE NORMAL - Vitals Vital signs reviewed: Yes - General General: Alert and oriented X 3, No acute distress, Well developed/nourished - HEENT HEENT: Atraumatic, EOMI, Moist mucous membranes - Neck Neck: Supple, no meningeal sign - Cardiac Cardiac: RRR, No murmur, Strong equal pulses - Respiratory Respiratory: No respiratory distress, Clear bilaterally - Abdomen Abdomen: Soft, Non tender, Non distended - Derm Derm: Normal color, Warm and dry, No rash - Extremities Extremities: No deformity - Neuro Neuro: Alert and oriented X 3 - Psych Psych: Normal mood, Normal affect Results - Vitals Vitals: Oxygen O2 Source Room air - EKG (time done) 0928 EKG releavant findings:: EKG personally interpreted by author of this note. Relevant findings are: Rate: Rate (enter#) (74) Rhythm: NSR [place]: Normal Intervals: Normal CO QRS: Normal Ischemia: Normal ST segments Compare to prior EKG: Old EKG unavailable Computer interpretation: Agree with computer - Labs Labs: Laboratory Tests 10/10/23 10/10/23 10/10/23 09:42 09:42 11:33 WBC 7.4 RBC 4.25 Hgb 13.0 Hct 39.0 MCV 91.8 MCH 30.6 MCHC 33.3 RDW 13.4 Plt Count 249 MPV 9.9 Neut # (Auto) 4.4 Lymph # (Auto) 2.1 [place] # (Auto) 0.4 Eos # (Auto) 0.4 Baso # (Auto) 0.1 Absolute Nucleated RBC 0.00 Nucleated RBC % 0.0 Sodium 136 Potassium 3.9 Chloride 105 Carbon Dioxide 25 Anion Gap 6.0 BUN 8 Creatinine 0.7 Estimated GFR (MDRD) 90 Glucose 192 H Calcium 9.3 Total Bilirubin 0.6 AST 20 ALT 36 Alkaline Phosphatase 51 Troponin I High Sens < 2.3 L < 2.3 L Total Protein 6.8 Albumin 4.0 Globulin 2.8 Albumin/Globulin Ratio 1.4 Lipase 11 PD Medical Decision Making - ED course Complexity details: reviewed results, re-evaluated patient, considered differential, d/w patient ED course: The pt was worked up with labs, EKG, and chest XR, all of which were unremarkable, including troponins. The pt had mentioned a history of DVT, and I had ordered a CT of the chest, given the pt's unexplained CP. The pt, however, refused, stating she did not think she had a blood clot, and did not wish to stay in the ED any longer. I explained my reasoning for doing this, but the pt does not wish this work-up. Her vital signs are normal, and she is without complaint of shortness of breath. I have advised her that if the pain recurs with any worsening or SOB, she should return to the ED immediately. Departure - Departure Disposition: 01 Home, Self Care Clinical Impression: Anxiety attack Shoulder pain, left Qualifiers: Chronicity: acute Qualified Code(s): M25.512 - Pain in left shoulder Chest pain Qualifiers: Chest pain type: unspecified Qualified Code(s): R07.9 - Chest pain, unspecified Condition: Stable Instructions: ED Chest Pain Atypical Unkn Cause, ED Panic Attack, ED Cervical Radiculopathy, ED Shoulder Pain UKO Comments: Your EKG and cardiac enzymes, including a repeat set, all look good. Your chest x-ray does not show any abnormalities. You have declined to have a CT scan of your chest today, which we ordered out of an abundance of caution, and given your distant history of blood clot formation in your legs. Your vital signs look great today and there is no evidence of an emergent condition causing your left shoulder pain. Given that you have the sharp pain with numbness going down your arm it actually sounds more like the nerve bundle that goes through your shoulder is getting compressed. This can happen at the shoulder joint or at any point in the neck. It is possible that you slept in such a way that your position was putting pressure on the shoulder and exerting pressure on the nerve. This could be the cause of your discomfort and if so, it should ultimately resolve on its own. It is important that you follow-up with your doctor to discuss whether you should have a stress test done and follow-up. Please schedule the next available appointment. If your symptoms worsen or you are concerned that you are developing a more emergent condition at any time, please return to the emergency department. Forms: PCP List Discharge Date/Time: 10/10/23 12:52
[2023-10-10] MEDS ORDERED: iohexoL-300 100 ML VIAL ONE (11:18)
[2023-10-10] MEDS: KETOROLAC 30 MG/ML VIAL IVP STA (11:36)
[2023-10-10] MEDS: ALPRAZolam 0.25 MG TABLET PO STA (11:37)
[2023-10-10 12:58] VITALS: BP 119/80; O2SAT 95
== END 2023-10-10 12:52 | disposition home or self-care (01) ==
LOC: ED 09:26
DX: F41.9 Anxiety disorder, unspecified (principal); M25.512 Pain in left shoulder; R07.9 Chest pain, unspecified; F17.200 Nicotine dependence, unspecified, uncomplicated; Z86.718 Personal history of other venous thrombosis and embolism
CPT/HCPCS: 36415; 71045; 80053; 83690; 84484; 85025; 93005; 96374; 99283; 99284; A9270